=== PATIENT | female | born 1975 | race Caucasian/White ===

== ENCOUNTER 2020-08-14 12:49 | Emergency (ER) | payer SELFPAY ==
[~2020-08-14] VITALS: Ht 170.2 cm; Wt 97.7 kg
--- NOTE | 2020-08-14 13:13 | ED GI ---
General Chief Complaint: Abdominal/GI Problems Stated Complaint: VOMITING/NAUSEA Source of Information: Patient Exam Limitations: No Limitations History of Present Illness Date Seen by Provider: Aug 14, 2020 Time Seen by Provider: 13:00 Initial Comments 45-year-old female presents with 3 days of nausea and vomiting without significant abdominal pain other than some mild epigastric discomfort. History of heartburn and similar discomfort in the past, however not frequently. Denies fever or chills or recent illness. Denies constipation or diarrhea. Denies hematuria or dysuria. Last menstrual period in June, so concerned she may be Allergies and Home Medications Allergies Coded Allergies: No Known Allergies (Unverified Allergy, Unknown, 08/14/20) Home Medications Famotidine 20 Mg Tablet, 20 MG PO BID Prescribed by: AALIYAH KAPLAN on 08/14/20 141 Ondansetron 4 Mg Tab.rapdis, 4 MG PO Q6H PRN for NAUSEA/VOMITING Prescribed by: AALIYAH KAPLAN on 08/14/20 1416 Patient Home Medication List Home Medication List Reviewed: Yes Review of Systems Review of Systems Constitutional: no symptoms reported; No chills, No fever; malaise EENTM: No Symptoms Reported Respiratory: No Symptoms Reported; Denies Cough, Denies Shortness of Air Cardiovascular: Denies Chest Pain, Denies Edema Gastrointestinal: Abdominal Pain (mild epigastric discomfort); Denies Constipated, Denies Diarrhea; Nausea, Poor Appetite, Poor Fluid Intake (2 to nausea), Vomiting Genitourinary: No Symptoms Reported Skin: No change in color, No lesions, No rash Past Ajztyfg-Jsjfso-Diymyy Hx Past Med/Social Hx: Reviewed Nursing Past Med/Soc Hx Patient Social History Recent Foreign Travel: No Contact w/Someone Who Travel: No Physical Exam Vital Signs Vital Signs - First Documented 08/14/20 12:50 Temp 36.8 Pulse 101 Resp 18 B/P (MAP) 121/70 (87) Pulse Ox 100 O2 Delivery Room Air Capillary Refill : Height/Weight/BMI Height: '" Weight: lbs. oz. kg; BMI Method: General Appearance: WD/WN, no apparent distress Respiratory: chest non-tender, lungs clear, normal breath sounds Cardiovascular: regular rate, rhythm, no edema, no JVD Gastrointestinal: normal bowel sounds, non tender, soft Back: normal inspection, no CVA tenderness Neurologic/Psychiatric: no motor/sensory deficits, alert, normal mood/affect Skin: normal color, warm/dry Progress/Results/Core Measures Results/Orders Lab Results Laboratory Tests Test 08/14/20 13:28 Range/Units White Blood Count 8.0 4.3-11.0 10^3/uL Red Blood Count 5.25 4.35-5.85 10^6/uL Hemoglobin 15.9 11.5-16.0 G/DL Hematocrit 47 35-52 % Mean Corpuscular Volume 89 80-99 FL Mean Corpuscular Hemoglobin 30 25-34 PG Mean Corpuscular Hemoglobin Concent 34 32-36 G/DL Red Cell Distribution Width 14.0 10.0-14.5 % Platelet Count 425 H 130-400 10^3/uL Mean Platelet Volume 9.0 7.4-10.4 FL Immature Granulocyte % (Auto) 0 % Neutrophils (%) (Auto) 75 42-75 % Lymphocytes (%) (Auto) 18 12-44 % Monocytes (%) (Auto) 6 0-12 % Eosinophils (%) (Auto) 1 0-10 % Basophils (%) (Auto) 0 0-10 % Neutrophils # (Auto) 6.0 1.8-7.8 X 10^3 Lymphocytes # (Auto) 1.5 1.0-4.0 X 10^3 Monocytes # (Auto) 0.4 0.0-1.0 X 10^3 Eosinophils # (Auto) 0.0 0.0-0.3 10^3/uL Basophils # (Auto) 0.0 0.0-0.1 10^3/uL Immature Granulocyte # (Auto) 0.0 0.0-0.1 10^3/uL Sodium Level 138 135-145 MMOL/L Potassium Level 4.3 3.6-5.0 MMOL/L Chloride Level 101 98-107 MMOL/L Carbon Dioxide Level 25 21-32 MMOL/L Anion Gap 12 5-14 MMOL/L Blood Urea Nitrogen 9 7-18 MG/DL Creatinine 0.62 0.60-1.30 MG/DL Estimat Glomerular Filtration Rate > 60 BUN/Creatinine Ratio 15 Glucose Level 116 H 70-105 MG/DL Calcium Level 9.8 8.5-10.1 MG/DL Corrected Calcium 9.4 8.5-10.1 MG/DL Total Bilirubin 0.4 0.1-1.0 MG/DL Aspartate Amino Transf (AST/SGOT) 9 5-34 U/L Alanine Aminotransferase (ALT/SGPT) 9 0-55 U/L Alkaline Phosphatase 96 40-136 U/L Total Protein 7.9 6.4-8.2 GM/DL Albumin 4.5 3.2-4.5 GM/DL Lipase 72 8-78 U/L My Orders Orders - AALIYAH KAPLAN DO Ed Iv/Invasive Line Start (08/14/20 13:07) Cbc With Automated Diff (08/14/20 13:07) Comprehensive Metabolic Panel (08/14/20 13:07) Lipase (08/14/20 13:07) Abdomen (Kub) 1 View (08/14/20 13:07) Ns Iv 1000 Ml (Sodium Chloride 0.9%) (08/14/20 13:15) Ondansetron Injection (Zofran Injectio (08/14/20 13:15) Medications Given in ED Current Medications Medications Dose Ordered Sig/Gurpreet Route Start Time Stop Time Status Last Admin Dose Admin Ondansetron HCl 4 mg ONCE ONCE IVP 08/14/20 13:15 08/14/20 13:16 DC 08/14/20 13:30 4 MG Vital Signs/I&O 08/14/20 12:50 Temp 36.8 Pulse 101 Resp 18 B/P (MAP) 121/70 (87) Pulse Ox 100 O2 Delivery Room Air Diagnostic Imaging Diagonstic Imaging: Xray Plain Films/CT/US/NM/MRI: abdomen Comments Date of Exam:08/14/20 ABDOMEN (KUB) 1 VIEW INDICATION: Epigastric pain. COMPARISON: None available. TECHNIQUE: Two radiographs of the abdomen dated 08/14/2020. FINDINGS: Minimally visualized lung bases are clear. Umbilical ornamentation is incidentally noted. Small amount of gas and stool is noted throughout the colon. No dilated loops of small bowel. No differential air-fluid levels. No free air. No suspicious calcification overlying the renal shadows. Several round calcifications are noted within the pelvis bilaterally, favored related to phleboliths. Mild osseous degenerative changes without acute osseous abnormality. IMPRESSION: No acute abnormality. Dictated on workstation # [id number] Dict: 08/14/20 1344 Trans: 08/14/20 1349 [facility] [id number] Interpreted by: SHELIA COFFEY MD Electronically signed by: Departure Impression Primary Impression: Nausea and vomiting Qualified Codes: R11.2 - Nausea with vomiting, unspecified Disposition: 01 HOME, SELF-CARE Condition: Improved Departure-Patient Inst. Decision time for Depature: 14:12 Referrals: [facility] NO,LOCAL PHYSICIAN (PCP) Primary Care Physician Patient Instructions: Nausea and Vomiting, Adult Add. Discharge Instructions: See your PCP or the [facility] in 2 to 3 days if not improving, sooner if worse. All discharge instructions reviewed with patient and/or family. Voiced understanding. Scripts Ondansetron (Ondansetron Odt) 4 Mg Tab.rapdis 4 MG PO Q6H PRN for NAUSEA/VOMITING, #12 TAB 0 Refills Prov: AALIYAH KAPLAN DO 08/14/20 Famotidine (Pepcid) 20 Mg Tablet 20 MG PO BID, #20 TAB Prov: AALIYAH KAPLAN DO 08/14/20 AALIYAH KAPLAN DO Aug 14, 2020 13:13
[2020-08-14] MEDS ORDERED: ONDANSETRON 4 MG/2 ML (SDV) Z0FRAN IVP ONE (13:15)
[2020-08-14] MEDS ORDERED: NS IV 1000 ML 1,000 ML IV SCH (13:15)
[2020-08-14 13:41] LABS: HEMATOCRIT 47 % (35-52); HEMOGLOBIN 15.9 G/DL (11.5-16.0); MEAN CORPUSCULAR HEMOGLOBIN 30 PG (25-34); MEAN CORPUSCULAR HGB CONC 34 G/DL (32-36); MEAN CORPUSCULAR VOLUME 89 FL (80-99); NEUTROPHILS % (AUTO) 75 % (42-75); PLATELET COUNT 425 10^3/uL (130-400)
[2020-08-14 13:42] LABS: BASOPHILS % (AUTO) 0 % (0-10); EOSINOPHILS % (AUTO) 1 % (0-10); LYMPHOCYTES # (AUTO) 1.5 X 10^3 (1.0-4.0); LYMPHOCYTES % (AUTO) 18 % (12-44); MONOCYTES # (AUTO) 0.4 X 10^3 (0.0-1.0); MONOCYTES % (AUTO) 6 % (0-12)
--- NOTE | 2020-08-14 13:50 | Diagnostic Imaging Report ---
INDICATION: Epigastric pain. COMPARISON: None available. TECHNIQUE: Two radiographs of the abdomen dated 08/14/2020. FINDINGS: Minimally visualized lung bases are clear. Umbilical ornamentation is incidentally noted. Small amount of gas and stool is noted throughout the colon. No dilated loops of small bowel. No differential air-fluid levels. No free air. No suspicious calcification overlying the renal shadows. Several round calcifications are noted within the pelvis bilaterally, favored related to phleboliths. Mild osseous degenerative changes without acute osseous abnormality. IMPRESSION: No acute abnormality. Dictated by: Dictated on workstation # [id number]
[2020-08-14 14:00] LABS: BUN/CREATININE RATIO 15; CARBON DIOXIDE 25 MMOL/L (21-32); CHLORIDE 101 MMOL/L (98-107); CREATININE SERUM 0.62 MG/DL (0.60-1.30); GFR ESTIMATED > 60; POTASSIUM 4.3 MMOL/L (3.6-5.0); SODIUM 138 MMOL/L (135-145)
[2020-08-14 14:01] LABS: ALANINE AMINOTRANSFERASE 9 U/L (0-55); ALBUMIN 4.5 GM/DL (3.2-4.5); ALKALINE PHOSPHATASE 96 U/L (40-136); BILIRUBIN,TOTAL 0.4 MG/DL (0.1-1.0); CALCIUM 9.8 MG/DL (8.5-10.1); GLUCOSE 116 MG/DL (70-105); LIPASE 72 U/L (8-78); TOTAL PROTEIN 7.9 GM/DL (6.4-8.2)
[2020-08-14] MEDS ORDERED: FAMO-119 PO (14:16)
[2020-08-14] MEDS ORDERED: ONDA4TAB11 PO (14:16)
[2020-08-14 14:24] VITALS: BP 156/90
== END 2020-08-14 14:24 | disposition home or self-care (01) ==
LOC: ER FS 12:51
DX: R11.2 Nausea with vomiting, unspecified (principal)
CPT/HCPCS: 36415; 74018; 80053; 83690; 84703; 85025

== ENCOUNTER 2021-09-02 04:02 | Inpatient (IN) | payer SELFPAY ==
[~2021-09-02] VITALS: Ht 170 cm; Wt 71.4 kg
[2021-09-02] VITALS (7 sets, daily range): BP systolic 153–175; BP diastolic 88–105
[~2021-09-02 04:02] MED LIST: FAMO-119 PO; ONDA4TAB11 PO
--- NOTE | 2021-09-02 04:07 | ED Abdominal Pain ---
General Stated Complaint: RT SIDE ABD PAIN History of Present Illness Date Seen by Provider: Sep 02, 2021 Time Seen by Provider: 04:07 Initial Comments 46-year-old female presents with right-sided lower abdominal pain. She reports that started around 10 PM last night. Patient reports that it hurts to lay back. She has some nausea and vomiting. Patient reports no other symptoms Allergies and Home Medications Allergies Coded Allergies: No Known Allergies (Unverified Allergy, Unknown, 08/14/20) Patient Home Medication List Home Medication List Reviewed: Yes Famotidine (Pepcid) 20 Mg Tablet, 20 MG PO BID Prescribed by: AALIYAH KAPLAN on 08/14/20 141 Ondansetron (Ondansetron Odt) 4 Mg Tab.rapdis, 4 MG PO Q6H PRN for NAUSEA/VOMITING Prescribed by: AALIYAH KAPLAN on 08/14/20 141 Review of Systems Review of Systems Constitutional: No fever Cardiovascular: No Symptoms Reported Gastrointestinal: Abdominal Pain, Nausea, Vomiting Genitourinary: No Symptoms Reported Musculoskeletal: no symptoms reported Skin: no symptoms reported Psychiatric/Neurological: No Symptoms Reported Endocrine: No Symptoms Reported Hematologic/Lymphatic: No Symptoms Reported Past Ptqnsrf-Wjlthn-Cvmqex Hx Seasonal Allergies Seasonal Allergies: No Past Medical History Surgeries: No Respiratory: No Cardiac: No Neurological: No Genitourinary: No Gastrointestinal: No Musculoskeletal: No Endocrine: No HEENT: No Cancer: No Psychosocial: No Integumentary: No Blood Disorders: No Physical Exam Vital Signs Vital Signs - First Documented 09/02/21 04:02 Pulse 90 Resp 20 B/P (MAP) 143/91 (108) Pulse Ox 98 O2 Delivery Room Air Capillary Refill : Height/Weight/BMI Height: '" Weight: lbs. oz. kg; 33.00 BMI Method: General Appearance: moderate distress Neck: full range of motion Respiratory: no respiratory distress, no accessory muscle use Cardiovascular: regular rate, rhythm, no edema Gastrointestinal: No distended; guarding Extremities: normal range of motion Neurologic/Psychiatric: alert Skin: normal color, tattoos/piercings Progress/Results/Core Measures Results/Orders Lab Results Laboratory Tests Test 09/02/21 04:13 09/02/21 04:50 Range/Units White Blood Count 18.6 H 4.3-11.0 10^3/uL Red Blood Count 4.21 3.80-5.11 10^6/uL Hemoglobin 12.7 11.5-16.0 g/dL Hematocrit 38 35-52 % Mean Corpuscular Volume 90 80-99 fL Mean Corpuscular Hemoglobin 30 25-34 pg Mean Corpuscular Hemoglobin Concent 34 32-36 g/dL Red Cell Distribution Width 13.1 10.0-14.5 % Platelet Count 437 H 130-400 10^3/uL Mean Platelet Volume 8.9 L 9.0-12.2 fL Immature Granulocyte % (Auto) 0 % Neutrophils (%) (Auto) 91 H 42-75 % Lymphocytes (%) (Auto) 4 L 12-44 % Monocytes (%) (Auto) 4 0-12 % Eosinophils (%) (Auto) 0 0-10 % Basophils (%) (Auto) 0 0-10 % Neutrophils # (Auto) 17.0 H 1.8-7.8 X 10^3 Lymphocytes # (Auto) 0.8 L 1.0-4.0 X 10^3 Monocytes # (Auto) 0.7 0.0-1.0 X 10^3 Eosinophils # (Auto) 0.0 0.0-0.3 10^3/uL Basophils # (Auto) 0.0 0.0-0.1 10^3/uL Immature Granulocyte # (Auto) 0.1 0.0-0.1 10^3/uL Neutrophils % (Manual) 90 % Lymphocytes % (Manual) 5 % Monocytes % (Manual) 2 % Band Neutrophils 2 % Atypical Lymphocytes 1 % Toxic Granulation 2+ Platelet Estimate INCREASED Blood Morphology Comment NORMAL Sodium Level 135 135-145 MMOL/L Potassium Level 3.4 L 3.6-5.0 MMOL/L Chloride Level 98 98-107 MMOL/L Carbon Dioxide Level 25 21-32 MMOL/L Anion Gap 12 5-14 MMOL/L Blood Urea Nitrogen 11 7-18 MG/DL Creatinine 0.70 0.60-1.30 MG/DL Estimat Glomerular Filtration Rate 91 BUN/Creatinine Ratio 16 Glucose Level 138 H 70-105 MG/DL Calcium Level 8.8 8.5-10.1 MG/DL Corrected Calcium 9.2 8.5-10.1 MG/DL Total Bilirubin 0.7 0.1-1.0 MG/DL Aspartate Amino Transf (AST/SGOT) 13 5-34 U/L Alanine Aminotransferase (ALT/SGPT) 11 0-55 U/L Alkaline Phosphatase 74 40-136 U/L C-Reactive Protein 3.18 H <0.50 MG/DL Total Protein 6.8 6.4-8.2 GM/DL Albumin 3.5 3.2-4.5 GM/DL Urine Color YELLOW Urine Clarity CLEAR Urine pH 7.0 5-9 Urine Specific [place] 1.020 1.016-1.022 Urine Protein 1+ H NEGATIVE Urine Glucose (UA) NEGATIVE NEGATIVE Urine Ketones 2+ H NEGATIVE Urine Nitrite NEGATIVE NEGATIVE Urine Bilirubin 1+ H NEGATIVE Urine Urobilinogen 0.2 < = 1.0 MG/DL Urine Leukocyte Esterase NEGATIVE NEGATIVE Urine RBC (Auto) NEGATIVE NEGATIVE Urine RBC NONE /HPF Urine WBC 2-5 /HPF Urine Squamous Epithelial Cells 5-10 /HPF Urine Crystals NONE /LPF Urine Bacteria FEW H /HPF Urine Casts PRESENT /LPF Urine Hyaline Casts 0-2 H /LPF Urine Mucus LARGE H /LPF Urine Culture Indicated NO My Orders Orders - SANCHEZ,LIZZETH L DO Cbc With Automated Diff (09/02/21 04:07) Comprehensive Metabolic Panel (09/02/21 04:07) Ua Culture If Indicated (09/02/21 04:07) Crp Fs (09/02/21 04:07) Morphine Injection (Morphine Injection (09/02/21 04:15) Ed Iv/Invasive Line Start (09/02/21 04:12) Manual Differential (09/02/21 04:13) Ct Abd/Pelv W (Appendicitis) (09/02/21 04:53) Iohexol Injection (Omnipaque 350 Mg/Ml 1 (09/02/21 05:00) Received Contrast (Hold Metformin- Contr (09/02/21 05:00) Ns (Ivpb) (Sodium Chloride 0.9% Ivpb Bag (09/02/21 05:00) Piperacillin Sodium/Tazobactam (Zosyn Vi (09/02/21 05:45) Morphine Injection (Morphine Injection (09/02/21 05:45) Lactic Acid Analyzer (09/02/21 05:45) Blood Culture (09/02/21 05:45) Medications Given in ED Current Medications Medications Dose Ordered Sig/Gurpreet Route Start Time Stop Time Status Last Admin Dose Admin Iohexol 100 ml ONCE ONCE IV 09/02/21 05:00 09/02/21 05:01 DC 09/02/21 05:21 100 ML Morphine Sulfate 2 mg ONCE ONCE IVP 09/02/21 04:15 09/02/21 04:16 DC 09/02/21 04:14 2 MG Sodium Chloride 100 ml ONCE ONCE IV 09/02/21 05:00 09/02/21 05:01 DC 09/02/21 05:21 80 ML Vital Signs/I&O 09/02/21 04:02 Pulse 90 Resp 20 B/P (MAP) 143/91 (108) Pulse Ox 98 O2 Delivery Room Air Departure Impression Primary Impression: Pneumoperitoneum Additional Impressions: Free fluid in pelvis Elevated WBC count Qualified Codes: D72.829 - Elevated white blood cell count, unspecified Disposition: 30 STILL A PATIENT Condition: Stable Admissions Decision to Admit Reason: Admit from ER (General) Decision to Admit/Date: Sep 02, 2021 Time/Decision to Admit Time: 05:45 Departure-Patient Inst. Referrals: NO,LOCAL PHYSICIAN (PCP/Family) Primary Care Physician LIZZETH SANCHEZ DO Sep 02, 2021 04:07
--- OUTSIDE RECORDS SUMMARY | 2021-09-02 04:08 | XMS REPORT | Clinical Summary ---
Author Author [facility] Organization [facility] Address Unknown Phone Unavailable Care Team Providers Care Despatch Clerk Name Role Phone PCP Unavailable Allergies Not on File Medications Not on file Active Problems Not on file Social History Date Tobacco Use Types Packs/Day Years Used Never Assessed Sex Assigned at Date Recorded Not on file Last Filed Vital Signs Not on file Plan of Treatment Not on file Results Not on filefrom Last 3 Months
[2021-09-02] MEDS ORDERED: morphine INJ 10 MG/ML 1ML (SYR OR VIAL) IVP ONE ×2 (04:15→05:45)
[2021-09-02 04:33] LABS: BASOPHILS % (AUTO) 0 % (0-10); EOSINOPHILS % (AUTO) 0 % (0-10); HEMATOCRIT 38 % (35-52); HEMOGLOBIN 12.7 g/dL (11.5-16.0); LYMPHOCYTES % (AUTO) 4 % (12-44); MEAN CORPUSCULAR HEMOGLOBIN 30 pg (25-34); MEAN CORPUSCULAR HGB CONC 34 g/dL (32-36); MEAN CORPUSCULAR VOLUME 90 fL (80-99); MEAN PLATELET VOLUME 8.9 fL (9.0-12.2); MONOCYTES % (AUTO) 4 % (0-12); NEUTROPHILS % (AUTO) 91 % (42-75); PLATELET COUNT 437 10^3/uL (130-400); WHITE BLOOD COUNT 18.6 10^3/uL (4.3-11.0)
[2021-09-02 04:34] LABS: LYMPHOCYTES # (AUTO) 0.8 X 10^3 (1.0-4.0); MONOCYTES # (AUTO) 0.7 X 10^3 (0.0-1.0)
[2021-09-02 04:43] LABS: ATYPICAL LYMPHOCYTES 1 %; BAND NEUTROPHILS 2 %; LYMPHOCYTES % (MANUAL) 5 %; MONOCYTES % (MANUAL) 2 %; NEUTROPHILS % (MANUAL) 90 %; PLATELET ESTIMATE INCREASED
[2021-09-02 04:44] LABS: RBC MORPH NORMAL; TOXIC GRANULATION/VACUOLAZATIO 2+
[2021-09-02 04:47] LABS: ALBUMIN 3.5 GM/DL (3.2-4.5); BILIRUBIN,TOTAL 0.7 MG/DL (0.1-1.0); CALCIUM 8.8 MG/DL (8.5-10.1); CREATININE SERUM 0.7 MG/DL (0.60-1.30); POTASSIUM 3.4 MMOL/L (3.6-5.0); TOTAL PROTEIN 6.8 GM/DL (6.4-8.2)
[2021-09-02] MEDS ORDERED: NS 100 ML (IVPB) BAG IV ONE (05:00)
[2021-09-02] MEDS ORDERED: HOLD METFORMIN - RECEIVED CONTRAST 20 ML VIAL IV SCH (05:00)
[2021-09-02] MEDS ORDERED: IOHEXOL 350 MG/ML 100 ML (OMNIPAQUE 350) VIAL IV ONE (05:00)
[2021-09-02 05:09] LABS: CLARITY,URINE CLEAR; COLOR,URINE YELLOW; GLUCOSE, URINE (UA) NEGATIVE (NEGATIVE); KETONES,URINE 2+ (NEGATIVE); LEUKOCYTE ESTERASE ,URINE NEGATIVE (NEGATIVE); NITRITE,URINE NEGATIVE (NEGATIVE); PROTEIN,URINE 1+ (NEGATIVE)
[2021-09-02 05:19] LABS: BACTERIA,URINE FEW /HPF; BILIRUBIN,URINE 1+ (NEGATIVE); HYALINE CASTS, URINE 0-2 /LPF
--- NOTE | 2021-09-02 05:33 | Diagnostic Imaging Report ---
PROCEDURE: CT abdomen and pelvis with contrast, rule out appendicitis. TECHNIQUE: Multiple contiguous axial images were obtained through the abdomen and pelvis after the administration of intravenous contrast. All CT scans use one or more of the following dose optimizing techniques: automated exposure control, MA and/or KvP adjustment based on patient size and exam type or iterative reconstruction. INDICATION: Right lower quadrant pain Lung bases are clear. There is a tiny pneumoperitoneum. There is a moderate amount of free fluid in the peritoneal cavity. The liver appears grossly normal. The gallbladder is present. Pancreas appears normal. The spleen is not enlarged. Kidneys and adrenals appear normal. There is calcific atherosclerosis of aorta but no aneurysm. There is a Momin catheter in urinary bladder. Uterus is present and unremarkable. Adnexa are unremarkable. There is no evidence for appendicitis. Small bowel is not dilated. Colon is unremarkable. IMPRESSION: There is a small pneumoperitoneum with a moderate amount of intraperitoneal free fluid. The source of the free air and free fluid is indeterminate. Dictated by: Dictated on workstation # [id number]
[2021-09-02] MEDS ORDERED: PIPERACILLIN SODIUM/TAZOBACTAM 4.5 GM in NS (IVPB) 100 ML IV ONE (05:45)
[2021-09-02] MEDS ORDERED: NS IV 1000 ML 1,000 ML IV STA (06:00)
[2021-09-02] MEDS ORDERED: NS IV 1000 ML 1,000 ML IV SCH (09:30)
--- NOTE | 2021-09-02 09:45 | Consultation - Surgery ---
JACKELINE MOURA 09/02/21 0945: History of Present Illness History of Present Illness Patient Consulted On(oz/time) 09/02/21 09:39 Time Seen by Provider: 09:30 History of Present Illness Ms. Woo is a 46yo female with past medical history of GERD presented to the ED last night with pain of the last three days that became more severe yesterday. It began in the epigastric area and has become diffuse and is most severe in the RLQ. The pain is sharp with no improvement. It is worse with breathing and palpation. She also complains of fever, nausea, and vomiting. She is not able to consume solid food or liquids. Allergies and Home Medications Allergies Coded Allergies: aspirin (Verified Allergy, Mild, Urticaria , 09/02/21) No Known Allergies (Unverified Allergy, Unknown, 08/14/20) Patient Home Medication List Famotidine (Pepcid) 20 Mg Tablet, 20 MG PO BID Prescribed by: AALIYAH KAPLAN on 08/14/20 1416 Ondansetron (Ondansetron Odt) 4 Mg Tab.rapdis, 4 MG PO Q6H PRN for NAUSEA/VOMITING Prescribed by: AALIYAH KAPLAN on 08/14/20 1416 Past Ewvujlq-Escayf-Bersny Hx Patient Social History Smoking Status: Current Everyday Smoker Type Used: Cigarettes 2nd Hand Smoke Exposure: Yes Recent Hopitalizations: No Alcohol Use?: No (Previous history of abuse, quit 10 years ago) Substance type: Marijuana (Potentially laced with methamphetamine ) Have you traveled recently?: No Seasonal Allergies Seasonal Allergies: Yes Surgeries History of Surgeries: Yes Surgeries: Orthopedic (Patella at 15yo, lumbar ) Respiratory History of Respiratory Disorde: No Cardiovascular History of Cardiac Disorders: No Neurological History of Neurological Disord: No Genitourinary History of Genitourinary Disor: No Gastrointestinal History of Gastrointestinal Di: Yes Gastrointestinal Disorders: Gastroesophageal Reflux Musculoskeletal History of Musculoskeletal Dis: Yes Musculoskeletal Disorders: Degenerate Disk Disease Endocrine History of Endocrine Disorders: No HEENT History of HEENT Disorders: No Cancer History of Cancer: No Psychosocial History of Psychiatric Problem: No Integumentary History of Skin or Integumenta: No Blood Transfusions History of Blood Disorders: No Family Medical History Significant Family History: Heart Disease, Cancer Review of Systems-General Constitutional: chills, fever, weight loss (From stress with family dispute ) EENTM: ear pain (tinnitus ); No blurred vision, No vision loss Respiratory: No dyspnea on exertion, No short of breath Cardiovascular: No chest pain, No edema Gastrointestinal: abdominal pain (RLQ); No constipation, No diarrhea; loss of appetite; No melena; nausea, vomiting Genitourinary: No decreased output, No frequency Musculoskeletal: back pain, joint pain Skin: No change in color, No change in hair/nails Psychiatric/Neurological: Emotional Problems, Headache Physical Exam-General Problems Physical Exam Vital Signs Vital Signs - First Documented 09/02/21 04:02 Pulse 90 Resp 20 B/P (MAP) 143/91 (108) Pulse Ox 98 O2 Delivery Room Air Capillary Refill : Less Than 3 Seconds General Appearance: mild distress, other (uncomfortable ) HEENT: PERRL/EOMI, normal ENT inspection Neck: non-tender, full range of motion Respiratory: chest non-tender, lungs clear, normal breath sounds, no respiratory distress, no accessory muscle use Cardiovascular: normal peripheral pulses, regular rate, rhythm, no edema Peripheral Pulses: 2+ Dorsalis Pedis (R), 2+ Left Dors-Pedis (L), 2+ Radial Pulses (R), 2+ Radial Pulses (L) Gastrointestinal: guarding, rebound, tenderness, other (rigid) Back: normal inspection, no CVA tenderness Extremities: normal range of motion, non-tender, normal inspection, no pedal edema Neurologic/Psychiatric: no motor/sensory deficits, alert, oriented x 3 Skin: normal color, warm/dry Lymphatic: no adenopathy Data Review Labs Laboratory Tests 09/02/21 04:13: White Blood Count 18.6H, Red Blood Count 4.21, Hemoglobin 12.7, Hematocrit 38, Mean Corpuscular Volume 90, Mean Corpuscular Hemoglobin 30, Mean Corpuscular Hemoglobin Concent 34, Red Cell Distribution Width 13.1, Platelet Count 437H, Mean Platelet Volume 8.9L, Immature Granulocyte % (Auto) 0, Neutrophils (%) (Auto) 91H, Lymphocytes (%) (Auto) 4L, Monocytes (%) (Auto) 4, Eosinophils (%) (Auto) 0, Basophils (%) (Auto) 0, Neutrophils # (Auto) 17.0H, Lymphocytes # (Auto) 0.8L, Monocytes # (Auto) 0.7, Eosinophils # (Auto) 0.0, Basophils # (Auto) 0.0, Immature Granulocyte # (Auto) 0.1, Neutrophils % (Manual) 90, Lymphocytes % (Manual) 5, Monocytes % (Manual) 2, Band Neutrophils 2, Atypical Lymphocytes 1, Toxic Granulation 2+, Platelet Estimate INCREASED, Blood Morphology Comment NORMAL, Sodium Level 135, Potassium Level 3.4L, Chloride Level 98, Carbon Dioxide Level 25, Anion Gap 12, Blood Urea Nitrogen 11, Creatinine 0.70, Estimat Glomerular Filtration Rate 91, BUN/Creatinine Ratio 16, Glucose Level 138H, Lactic Acid Level 0.87, Calcium Level 8.8, Corrected Calcium 9.2, Total Bilirubin 0.7, Aspartate Amino Transf (AST/SGOT) 13, Alanine Aminotransferase (ALT/SGPT) 11, Alkaline Phosphatase 74, C-Reactive Protein 3.18H, Total Protein 6.8, Albumin 3.5 09/02/21 04:50: Urine Color YELLOW, Urine Clarity CLEAR, Urine pH 7.0, Urine Specific [place] 1.020, Urine Protein 1+H, Urine Glucose (UA) NEGATIVE, Urine Ketones 2+H, Urine Nitrite NEGATIVE, Urine Bilirubin 1+H, Urine Urobilinogen 0.2, Urine Leukocyte Esterase NEGATIVE, Urine RBC (Auto) NEGATIVE, Urine RBC NONE, Urine WBC 2-5, Urine Squamous Epithelial Cells 5-10, Urine Crystals NONE, Urine Bacteria FEWH, Urine Casts PRESENT, Urine Hyaline Casts 0-2H, Urine Mucus LARGEH, Urine Culture Indicated NO Radiology NAME: DAVION WOO [facility] REC#: [id number] PT STATUS: REG ER : 1975 PHYSICIAN: LIZZETH SANCHEZ DO ADMIT DATE: 09/02/21/ER FS Signed Date of Exam:09/02/21 CT ABD/PELV W (APPENDICITIS) PROCEDURE: CT abdomen and pelvis with contrast, rule out appendicitis. TECHNIQUE: Multiple contiguous axial images were obtained through the abdomen and pelvis after the administration of intravenous contrast. All CT scans use one or more of the following dose optimizing techniques: automated exposure control, MA and/or KvP adjustment based on patient size and exam type or iterative reconstruction. INDICATION: Right lower quadrant pain Lung bases are clear. There is a tiny pneumoperitoneum. There is a moderate amount of free fluid in the peritoneal cavity. The liver appears grossly normal. The gallbladder is present. Pancreas appears normal. The spleen is not enlarged. Kidneys and adrenals appear normal. There is calcific atherosclerosis of aorta but no aneurysm. There is a Momin catheter in urinary bladder. Uterus is present and unremarkable. Adnexa are unremarkable. There is no evidence for appendicitis. Small bowel is not dilated. Colon is unremarkable. IMPRESSION: There is a small pneumoperitoneum with a moderate amount of intraperitoneal free fluid. The source of the free air and free fluid is indeterminate. Dictated by: Dictated on workstation # [id number] Dict: 09/02/21521 Trans: 09/02/21530 TCB [id number] Interpreted by: PORFIRIO KING MD Assessment/Plan Assessment/Plan Assessment/Plan Bowel rupture with pneumoperitoneum and free fluid in pelvis Diagnostic laparoscopy and all other indicated procedures Pain management with fentanyl IV fluids Leukocytosis with neutrophilia Piperacillin/tazobactam Possible Fluconazole pending results of laparoscopy CUAUHTEMOC RICHARDSON DO 09/02/21 1127: History of Present Illness History of Present Illness History of Present Illness CC: diffuse abdominal pain. Patient is a 46 year old female with diffuse abdominal pain that began last night about 10 pm. Prior to that , she had vague abdominal pain which continued to worsen. Began in epigastric area first. Pain is sharp in nature. Having nausea and emesis. States has had subjective fever. Movement makes worse, nothing making better. WBC 18.6. Had ct scan showing fluid in the abdomen and pneumoperitoneum. Allergies and Home Medications Allergies Coded Allergies: aspirin (Verified Allergy, Mild, Urticaria , 09/02/21) No Known Allergies (Unverified Allergy, Unknown, 08/14/20) Patient Home Medication List Home Medication List Reviewed: Yes Famotidine (Pepcid) 20 Mg Tablet, 20 MG PO BID Prescribed by: AALIYAH KAPLAN on 08/14/20 1416 Ondansetron (Ondansetron Odt) 4 Mg Tab.rapdis, 4 MG PO Q6H PRN for NAUSEA/VOMITING Prescribed by: AALIYAH SAMAYOASTSARTHAK on 08/14/20 1416 Past Jhzyvuq-Jihzsv-Iimdzq Hx Patient Social History Smoking Status: Current Everyday Smoker Substance type: Marijuana (Potentially laced with methamphetamine ) Seasonal Allergies Seasonal Allergies: Yes Surgeries History of Surgeries: Yes Surgeries: Orthopedic (Patella at 15yo, lumbar ) Reviewed Nursing Assessment Reviewed/Agree w Nursing PMH: Yes Family Medical History Significant Family History: No Pertinent Family Hx Review of Systems-General Constitutional: chills, fever, weight loss (From stress with family dispute ) EENTM: ear pain (tinnitus ); No blurred vision, No vision loss Respiratory: No dyspnea on exertion, No short of breath Cardiovascular: No chest pain, No edema Gastrointestinal: abdominal pain (diffuse); No constipation, No diarrhea; loss of appetite; No melena; nausea, vomiting Genitourinary: No decreased output, No frequency Musculoskeletal: back pain, joint pain Skin: No change in color, No change in hair/nails Psychiatric/Neurological: Emotional Problems, Headache All Other Systems Reviewed Negative Unless Noted: Yes (Negative excepted noted.) Physical Exam-General Problems Physical Exam General Appearance: mild distress, other (uncomfortable ) HEENT: PERRL/EOMI, normal ENT inspection Neck: non-tender, full range of motion Respiratory: chest non-tender, no respiratory distress, no accessory muscle use Cardiovascular: regular rate, rhythm, no JVD Gastrointestinal: guarding, rebound, tenderness (diffuse), other (rigid/ata tonitis) Back: normal inspection, no CVA tenderness Extremities: normal range of motion, normal inspection, no pedal edema Neurologic/Psychiatric: no motor/sensory deficits, alert, oriented x 3 Skin: normal color, warm/dry Lymphatic: no adenopathy Assessment/Plan Assessment/Plan Assessment/Plan Diffuse abdominal pain Pneumoperitoneum Marijuanna use Patient on Zosyn Discussed risks and benefits of diagnostic laparoscopy possible open all other indicated procedures SHe understands and wishes to proceed. To OR. Supervisory-Addendum Brief Verification & Attestation Participated in pt care: history, MDM, physical Personally performed: exam, history, MDM, supervision of care Care discussed with: Medical Student Procedures: n/a Results interpretation: Verified all documentation Verification and Attestation of Medical Student E/M Service A medical student performed and documented this service in my presence. I reviewed and verified all information documented by the medical student and made modifications to such information, when appropriate. I personally performed the physical exam and medical decision making. Cuauhtemoc Richardson, Sep 02, 2021,11:27 JACKELINE MOURA Sep 02, 2021 09:45 CUAUHTEMOC RICHADRSON DO Sep 02, 2021 11:27
[2021-09-02] MEDS ORDERED: ONDANSETRON 4 MG/2 ML (SDV) Z0FRAN IVP PRN (10:00)
[2021-09-02] MEDS ORDERED: EPINEPHrine 1 MG INJECTION 4 MG in NS (IVPB) 248 ML IV SCH (10:00)
[2021-09-02] MEDS: NOREPINEPHRINE 8 MG/250 ML 250 ML IV SCH (10:15)
[2021-09-02] MEDS: VASOPRESSIN INJECTION 20 UNIT in NS (IVPB) 100 ML IV SCH ×2 (10:16→23:55)
[2021-09-02 10:43] LABS: HCG,QUALITATIVE URINE NEGATIVE (NEGATIVE)
[2021-09-02] MEDS: morphine INJ 4 MG/ML 1 ML (VIAL/SYRINGE) IVP PRN ×4 (10:47→22:22)
[2021-09-02] MEDS ORDERED: LIDOCAINE/EPI 1%-1:100,000 (XYLOCAINE) 20ML ONE (10:48)
[2021-09-02 10:53] LABS: AMPHETAMINE SCREEN, URINE POSITIVE (NEGATIVE); BARBITURATE SCREEN URINE NEGATIVE (NEGATIVE); BENZODIAZEPINES SCREEN URINE NEGATIVE (NEGATIVE); CANNABINOID SCREEN, URINE POSITIVE (NEGATIVE); COCAINE SCREEN URINE NEGATIVE (NEGATIVE); METHADONE STAT NEGATIVE (NEGATIVE); METHAMPHETAMINE SCREEN URINE S POSITIVE (NEGATIVE); OPIATE SCREEN URINE POSITIVE (NEGATIVE); OXYCODONE STAT NEGATIVE (NEGATIVE); PROPOXYPHENE STAT NEGATIVE (NEGATIVE); TRICYCLIC ANTIDEPRESSANTS SCRE NEGATIVE (NEGATIVE)
[2021-09-02] MEDS ORDERED: LACTATED RINGERS 1,000 ML IV PRN (11:00)
[2021-09-02] MEDS ORDERED: fentaNYL INJ 100 MCG/2 ML AMP ONE (11:08)
[2021-09-02] MEDS ORDERED: MIDAZOLAM 2 MG/2 ML (VERSED) VIAL ONE (11:09)
[2021-09-02] MEDS: LACTATED RINGERS 1,000 ML IV PRN ×2 (11:29→12:04)
[2021-09-02] MEDS: PIPERACILLIN/TAZO 4.5 GM/NS 100 ML IV SCH ×4 (11:55→19:43)
[2021-09-02] MEDS ORDERED: GLYCOPYRROLATE 0.2 MG/ML (ROBINUL) 2 ML VIAL ONE (12:17)
[2021-09-02] MEDS ORDERED: NEOSTIGMINE 3 MG/3 ML VIAL ONE (12:17)
[2021-09-02] MEDS ORDERED: ONDANSETRON 4 MG/2 ML (SDV) Z0FRAN ONE (12:17)
[2021-09-02] MEDS ORDERED: LIDOCAINE JELLY 2% 6 ML SYRINGE ONE (12:17)
[2021-09-02] MEDS ORDERED: SUCCINYLCHOLINE INJ 100 MG/5 ML SYR/VIAL ONE (12:17)
[2021-09-02] MEDS ORDERED: LIDOCAINE PF 2% 5 ML (XYLOCAINE) VIAL ONE (12:17)
[2021-09-02] MEDS ORDERED: proPOfol 200 MG/20 ML (DIPRIVAN) VIAL IV ONE (12:17)
[2021-09-02] MEDS ORDERED: ROCURONIUM 10 MG/ML 5 ML SYRINGE IV ONE (12:17)
[2021-09-02] MEDS ORDERED: BUPIVACAINE 0.5% 30 ML (SENSORCAINE) VIAL ONE (12:42)
[2021-09-02] MEDS ORDERED: HYDROmorphone 2 MG/ML VIAL (DILAUDID) ONE (13:10)
[2021-09-02] MEDS ORDERED: SEVOFLURANE (ULTANE) 15 ML INHAL SOLN ONE (13:11)
[2021-09-02] MEDS ORDERED: FLUCONAZOLE 200 MG/100 ML 100 ML IV NR (13:30)
[2021-09-02] MEDS ORDERED: NS (IVPB) 0 ML ONE (13:33)
[2021-09-02] MEDS: LACTATED RINGERS 1,000 ML IV SCH ×2 (14:32→22:21)
[2021-09-02] MEDS: PANTOPRAZOLE INJECTION 200 MG in NS (IVPB) 100 ML IV SCH (14:36)
--- NOTE | 2021-09-02 16:04 | Tele-ICU Consult ---
History of Present Illness History of Present Illness Date Seen by Provider: Sep 02, 2021 Time Seen by Provider: 16:03 Date of Admission Allergies and Home Medications Allergies Coded Allergies: aspirin (Verified Allergy, Mild, Urticaria , 09/02/21) No Known Allergies (Unverified Allergy, Unknown, 08/14/20) Home Medications Famotidine 20 Mg Tablet, 20 MG PO BID Prescribed by: AALIYAH KAPLAN on 08/14/20 1416 Ondansetron 4 Mg Tab.rapdis, 4 MG PO Q6H PRN for NAUSEA/VOMITING Prescribed by: AALIYAH KAPLAN on 08/14/20 1416 Past Medical/Social/Family Hx Patient Social History Tobacco Use?: Yes Tobacco type used: Cigarettes Smoking Status: Current Everyday Smoker Smokeless Tobacco Frequency: Heavy User Use of E-Cig and/or Vaping dev: No Substance use?: Yes Substance type: Marijuana (Potentially laced with methamphetamine ) OCCASIONAL USE Substance frequency: Couple times a week Alcohol Use?: No (Previous history of abuse, quit 10 years ago) Pt stated abuse/neglect: No Immunizations Up To Date Influenza Vaccine Up-to-Date: No; Not Current Current Status Advance Directives: No Communicates: Verbally Primary Language: Moroccan Preferred Spoken Language: Moroccan Is interpretation needed?: No Implanted or Applied Medical D: None Review of Systems Constitutional: see HPI Sepsis Event Evaluation Height, Weight, BMI Height: '" Weight: lbs. oz. kg; 2456.74 BMI Method: Exam Exam Patient acknowledged, consented, and participated in this virtual visit which was conducted using real time audio/video Vital Signs Date Time Temp Pulse Resp B/P (MAP) Pulse Ox O2 Delivery O2 Flow Rate FiO2 09/02/21 15:00 86 16 151/92 95 Room Air 09/02/21 14:05 87 16 165/102 94 Room Air 09/02/21 14:03 89 09/02/21 14:00 36.8 18 155/92 (113) 96 Room Air 09/02/21 14:00 Room Air 09/02/21 13:50 18 153/88 (109) 97 Room Air 09/02/21 13:45 Room Air 09/02/21 13:42 Room Air 09/02/21 13:40 18 163/99 (120) 100 OxyMask 3 09/02/21 13:40 OxyMask 3 09/02/21 13:32 OxyMask 6 09/02/21 13:30 18 166/99 (121) 100 OxyMask 6 09/02/21 13:27 OxyMask 6 09/02/21 13:20 18 175/105 (128) 100 OxyMask 6 09/02/21 13:15 OxyMask 6 09/02/21 13:10 18 173/102 (125) 100 OxyMask 6 09/02/21 13:03 OxyMask 6 09/02/21 13:03 37.0 20 164/92 (116) 100 OxyMask 6 09/02/21 12:26 Room Air 8.00 09/02/21 11:00 96 14 130/76 97 Room Air 09/02/21 10:16 86 130/79 09/02/21 10:15 86 130/79 09/02/21 10:00 80 19 126/80 99 Room Air 09/02/21 09:33 96 Room Air 09/02/21 09:00 86 09/02/21 09:00 37.0 81 18 130/79 97 Room Air 09/02/21 08:04 88 16 132/74 97 Room Air 09/02/21 04:02 90 20 143/91 (108) 98 Room Air I & O 09/02/21 07:00 Intake Total 400 ml Balance 400 ml Height & Weight Height: '" Weight: lbs. oz. kg; 2456.74 BMI Method: General Appearance: No Apparent Distress Capillary Refill: Less Than 3 Seconds Peripheral Pulses: 2+ Dorsalis Pedis (R), 2+ Left Dors-Pedis (L), 2+ Radial Pulses (R), 2+ Radial Pulses (L) Gastrointestinal: guarding, rebound, tenderness (diffuse), other (rigid/peritonitis) Results Lab Laboratory Tests 09/02/21 04:13 Assessment/Plan Assessment/Plan (Tele-ICU Physician , consultation) Available chart/ vitals / labs / Images reviewed H&P is from ER notes Patient's information available about PMH, Shx, Fhx allergy reviewed in EMR. ROS as per chart and RN report Now in ICU, hemodynamically stable Video assessment done using teleICU camera, on arrival to ICU , and now post op Discussed with RN. Consultants: SX Hospital course: 09/02 - trnsferred to ICU from other facility with small pneumoperitoneum with a moderate amount of intraperitoneal free fluid. 09/02- s/p SX A/P Small pneumoperitoneum with a moderate amount of intraperitoneal free fluid. - expl lap scheduled - converted to open - full report is not available yet - extubated post op , on RA - ABX - zosyn IV - hydration Tox screen positive for metamphet . Amphetamins nd cannabioids Lines : (Central Line Necessity Reviewed) Momin: OG: Nutrition: Analgesia: Anxiety/ delirium VTE Prophylaxis: scd Stress Ulcer Prophylaxis: PPI - GTT Glycemic Control: Plans in collaboration with bedside consultants and IM MDs. Discussed with RN to reach out if any questions or concerns A total of 31 minutes of critical care time was devoted to this patient today, required to treat and/or prevent further deterioration of critical care condition ( as above ) . MARBIN RODRIGUEZ MD Sep 02, 2021 16:04
--- NOTE | 2021-09-02 20:58 | Progress Note-Post Operative ---
Post-Operative Progess Note Surgeon (s)/Vocational Auto Body Instructor (s) Surgeon CUAUHTEMOC RICHARDSON DO Vocational Auto Body Instructor: Dr. Alford Pre-Operative Diagnosis diffuse abdominal pain, pneumoperitoneum Post-Operative Diagnosis gastric perforation Procedure & Operative Findings Date of Procedure 09/02/21 Procedure Performed/Findings diagnostic laparoscopy, converted to open with gastric biopsy and modified christiane patch for gastric perforation Anesthesia Type general Estimated Blood Loss Estimated blood loss (mL): minimal Specimens/Packing Specimens Removed gastric perforation CUAUHTEMOC RICHARDSON DO Sep 02, 2021 20:58
--- NOTE | 2021-09-02 21:34 | Consultation - Hospitalist ---
HPI History of Present Illness: HPI/Chief Complaint Nancy Saravia is a 46 year old female who presented with abdominal pain. She was found to have pneumoperitoneum and was admitted to general surgery. The hospitalist service has been consulted for medical management. She is still having severe abdominal pain. She denies any trauma. She denies drug use. She is not having fevers or chills. She denies chest pain. She denies shortness of breath and cough. She denies nausea and vomiting. Source: patient Exam Limitations: no limitations Date Seen 09/02/21 Attending Physician Layo Stafford DO PCP No,Local Physician Referring Physician Date of Admission Sep 02, 2021 at 09:00 Home Medications & Allergies Home Medications Reviewed patient Home Medication Reconciliation performed by pharmacy medication reconciliations soil conservation technician and/or nursing. Patients Allergies have been reviewed. Allergies Allergies Coded Allergies aspirin (Verified Allergy, Mild, Urticaria , 09/02/21) No Known Allergies (Unverified Allergy, Unknown, 08/14/20) Past Oujfxcg-Yvgnxc-Fzbach Hx Patient Social History Tobacco Use?: Yes Tobacco type used: Cigarettes Smoking Status: Current Everyday Smoker Smokeless Tobacco Frequency: Heavy User Use of E-Cig and/or Vaping dev: No Substance use?: Yes Substance type: Marijuana (Potentially laced with methamphetamine ) Additional substance use comme: OCCASIONAL USE Substance frequency: Couple times a week Alcohol Use?: No (Previous history of abuse, quit 10 years ago) Pt feels they are or have been: No Seasonal Allergies Seasonal Allergies: Yes Current Status Advance Directives: No Communicates: Verbally Primary Language: Guyanese Preferred Spoken Language: Guyanese Is interpretation needed?: No Implanted or Applied Medical D: None Past Medical History Surgeries: Orthopedic (Patella at 15yo, lumbar ) Gastroesophageal Reflux Degenerate Disk Disease Blood Disorders: No Family Medical History No Pertinent Family Hx Review of Systems Constitutional: no symptoms reported, see HPI Physical Exam Physical Exam Vital Signs Vital Signs - First Documented 09/02/21 04:02 Pulse 90 Resp 20 B/P (MAP) 143/91 (108) Pulse Ox 98 O2 Delivery Room Air Capillary Refill : Less Than 3 Seconds Height, Weight, BMI Height: '" Weight: lbs. oz. kg; 2456.74 BMI Method: General Appearance: No Apparent Distress, Anxious, Mild Distress HEENT: PERRL/EOMI, Other (dry mucous membranes) Neck: Normal Inspection, Supple Respiratory: Lungs Clear, Normal Breath Sounds, No Respiratory Distress Cardiovascular: Regular Rate, Rhythm, No Edema, No Murmur Gastrointestinal: Normal Bowel Sounds, Guarding, Tenderness Extremity: Normal Inspection, Non Tender, No Pedal Edema Neurologic/Psychiatric: Alert, Oriented x3, No Motor/Sensory Deficits Skin: Normal Color, Warm/Dry Results Results/Procedures Labs Laboratory Tests 09/02/21 04:13 Patient resulted labs reviewed. Imaging: Reviewed Imaging Report Assessment/Plan Assessment and Plan Assess & Plan/Chief Complaint Pneumoperitoneum Surgery primary CT showed pneumoperitoneum Planning for diagnostic laparoscopy Likely perforation NPO Pain regimen Cannibis abuse Methamphetamine abuse Opiate abuse Urine tox positive for marijuana, amphetamines, and opiates Thank you for the consult. Please contact the client application support engineer hospitalist with any questions or concerns. We will continue to follow as needed. Critical Care Critically Ill Patient Diagnosis/Problems Diagnosis/Problems (1) Pneumoperitoneum Status: Acute (2) Cannabis abuse Status: Acute (3) Methamphetamine abuse Status: Acute (4) Opioid abuse Status: Acute FRANCISCO BAEZA MD Sep 02, 2021 21:34
--- NOTE | 2021-09-02 23:16 | OPERATIVE REPORT ---
DATE OF SERVICE: 09/02/2021 PREOPERATIVE DIAGNOSES: Diffuse abdominal pain, pneumoperitoneum. POSTOPERATIVE DIAGNOSIS: Gastric perforation. PROCEDURE: Diagnostic laparoscopy converted to open with gastric biopsy and modified Royce patch for a gastric perforation. SURGEON: Cuauhtemoc Stafford DO CATALOGUE COMPILER: Dr. Alford, assisted in retraction, dissection and closure. ANESTHESIA: General. ESTIMATED BLOOD LOSS: Minimal. COMPLICATIONS: None. INDICATIONS: The patient is a 46-year-old female, who began having severe abdominal pain last night. She went to the Emergency Department for further evaluation this morning and was found to have pneumoperitoneum and diffuse amount of fluid throughout the abdomen. The patient on my review of CT scan is suggestive of gastric perforation on exam with peritonitis. She was discussed risks and benefits of procedure and wished to proceed. Consent was signed in the chart. DESCRIPTION OF PROCEDURE: The patient was taken to the operating suite. She was prepped and draped in sterile fashion. Timeout was performed. Local anesthetic was infiltrated just above the umbilicus. A 12 mm incision was made. Cautery was used to dissect down to the fascia, which was then scored and opened and a 12 mm trocar was then inserted into the abdomen and pneumoperitoneum was achieved. The abdomen was inspected. Diffuse amount of succuss throughout the abdomen. Under direct visualization of laparoscope, a 5 mm trocar was placed in the right side the abdomen and a 5 mm trocar was placed on the left side of the abdomen. The abdomen was then began suction irrigated and began inspecting the abdomen, multiple adhesions of the stomach and duodenum up to the liver, which a perforation was visualized at the distal portion of the stomach. At this point, a subsequent adhesions present, which were able to be bluntly broken up. It was decided to proceed in an open manner. Therefore, a midline incision was made extending the 12 mm trocar site towards the xiphoid, was able to visualize the perforation well. Biopsy forceps were used to take a small biopsy at the site of the perforation. A 3-0 silk suture pop-offs were then used to close the defect in interrupted fashion. The suture tails were then used to bring the omentum up and towels in order to hold the omentum as a patch. The abdomen was then irrigated and suctioned with copious amounts of irrigation. A 19 Jack drain was placed at the perforation site, brought out through the left 5 mm trocar site. This was sutured in place with 3-0 nylon. The other 5 mm trocar was removed. The fascia was then closed after copious amounts of irrigation was used to irrigate and suction again. The fascia was then closed using 1-0 looped PDS in a running fashion. The skin was then closed with romeo. The patient tolerated procedure well without any complications. She was taken to the recovery room in stable condition. The patient to remain n.p.o. until approximately 5 days and has upper GI contrast study for further evaluation for leak. Job ID: [id number] DocumentID: [id number] Dictated Date: 09/02/2021 21:05:07 Lotteries Agent Date: 09/02/2021 23:15:28 Dictated By: CUAUHTEMOC STAFFORD DO
[2021-09-03] MEDS: PIPERACILLIN/TAZO 4.5 GM/NS 100 ML IV SCH ×6 (04:46→19:35)
[2021-09-03 05:10] LABS: BASOPHILS % (AUTO) 0 % (0-10); EOSINOPHILS % (AUTO) 0 % (0-10); HEMATOCRIT 33 % (35-52); HEMOGLOBIN 10.8 g/dL (11.5-16.0); LYMPHOCYTES # (AUTO) 0.8 10^3/uL (1.0-4.0); LYMPHOCYTES % (AUTO) 6 % (12-44); MEAN CORPUSCULAR HEMOGLOBIN 30 pg (25-34); MEAN CORPUSCULAR HGB CONC 33 g/dL (32-36); MEAN CORPUSCULAR VOLUME 92 fL (80-99); MEAN PLATELET VOLUME 9.8 fL (9.0-12.2); MONOCYTES # (AUTO) 0.4 10^3/uL (0.0-1.0); MONOCYTES % (AUTO) 3 % (0-12); NEUTROPHILS # (AUTO) 11.1 10^3/uL (1.8-7.8); NEUTROPHILS % (AUTO) 90 % (42-75); PLATELET COUNT 327 10^3/uL (130-400); WHITE BLOOD COUNT 12.3 10^3/uL (4.3-11.0)
[2021-09-03] MEDS: morphine INJ 4 MG/ML 1 ML (VIAL/SYRINGE) IVP PRN ×5 (05:18→19:36)
[2021-09-03 05:27] LABS: POTASSIUM 3.4 MMOL/L (3.6-5.0)
[2021-09-03 05:28] LABS: CALCIUM 8.1 MG/DL (8.5-10.1)
[2021-09-03 05:33] LABS: CREATININE SERUM 0.64 MG/DL (0.60-1.30)
[2021-09-03] MEDS: POTASSIUM CL 10MEQ/50ML IVPB 50 ML IV SCH ×2 (05:48→06:26)
[2021-09-03] MEDS: LACTATED RINGERS 1,000 ML IV SCH ×2 (05:48→13:53)
[2021-09-03] MEDS: KCL 20 MEQ TAB (K-DUR) PO SCH (06:26)
[2021-09-03] MEDS: MAGNESIUM 1 GM/100 ML IVPB 100 ML IV SCH ×3 (06:26→09:42)
[2021-09-03] MEDS: NOREPINEPHRINE 8 MG/250 ML 250 ML IV SCH (06:26)
--- NOTE | 2021-09-03 07:09 | Progress Note - Surgery ---
JACKELINE MOURA 09/03/21 0709: Subjective Time Seen by a Provider: 06:30 Subjective/Events-last exam Patient seen at bedside this morning. She is post-op day 1 for diagnostic laparoscopy converted to open with gastric biopsy and modified Royce patch for a gastric perforation. She is resting comfortably in bed with an ice pack on her abdomen. She states she has minimal pain in the RLQ which is managed by pain medication. She has no nausea, vomiting, bowel movements, or flatus. She has no other complaints. Review of Systems General: No Chills, No Fatigue HEENT: No Head Aches, No Visual Changes Pulmonary: No Dyspnea, No Pleuritic Chest Pain Cardiovascular: No: Chest Pain, Edema Gastrointestinal: No: Nausea, Vomiting, Diarrhea, Constipation Genitourinary: No Dysuria, No Frequency Musculoskeletal: No: arm pain, leg pain Neurological: No: Weakness, Numbness Focused Exam Lactate Level 09/02/21 04:13: Lactic Acid Level 0.87 Objective Exam Vital Signs Date Time Temp Pulse Resp B/P (MAP) Pulse Ox O2 Delivery O2 Flow Rate FiO2 09/03/21 06:00 51 13 143/91 97 Room Air 09/03/21 05:00 72 20 140/82 98 Room Air 09/03/21 04:00 36.8 09/03/21 04:00 Room Air 09/03/21 04:00 78 27 144/85 97 Room Air 09/03/21 03:00 55 12 136/85 98 Room Air 09/03/21 02:00 57 17 146/86 97 Room Air 09/03/21 01:09 49 09/03/21 01:00 53 12 154/87 99 Room Air 09/03/21 00:00 51 15 128/87 99 Room Air 09/03/21 00:00 Room Air 09/02/21 23:00 59 13 128/80 99 Room Air 09/02/21 22:00 70 30 126/77 97 Room Air 09/02/21 21:00 57 13 120/73 98 Room Air 09/02/21 20:14 Room Air 09/02/21 20:00 71 14 136/83 98 Room Air 09/02/21 19:49 37.0 09/02/21 19:17 62 09/02/21 19:00 69 20 136/87 99 Room Air 09/02/21 18:45 38.0 09/02/21 18:00 77 19 123/73 96 Room Air 09/02/21 17:00 90 16 116/69 95 Room Air 09/02/21 16:00 Room Air 09/02/21 16:00 87 16 152/84 94 Room Air 09/02/21 15:00 86 16 151/92 95 Room Air 09/02/21 15:00 37.3 09/02/21 14:05 87 16 165/102 94 Room Air 09/02/21 14:03 89 09/02/21 14:00 36.8 18 155/92 (113) 96 Room Air 09/02/21 14:00 Room Air 09/02/21 13:50 18 153/88 (109) 97 Room Air 09/02/21 13:45 Room Air 09/02/21 13:42 Room Air 09/02/21 13:40 18 163/99 (120) 100 OxyMask 3 09/02/21 13:40 OxyMask 3 09/02/21 13:32 OxyMask 6 09/02/21 13:30 18 166/99 (121) 100 OxyMask 6 09/02/21 13:27 OxyMask 6 09/02/21 13:20 18 175/105 (128) 100 OxyMask 6 09/02/21 13:15 OxyMask 6 09/02/21 13:10 18 173/102 (125) 100 OxyMask 6 09/02/21 13:03 OxyMask 6 09/02/21 13:03 37.0 20 164/92 (116) 100 OxyMask 6 09/02/21 12:26 Room Air 09/02/21 11:00 96 14 130/76 97 Room Air 09/02/21 10:16 86 130/79 09/02/21 10:15 86 130/79 09/02/21 10:00 80 19 126/80 99 Room Air 09/02/21 09:33 96 Room Air 09/02/21 09:00 86 09/02/21 09:00 37.0 81 18 130/79 97 Room Air 09/02/21 08:04 88 16 132/74 97 Room Air I & O 09/03/21 07:00 Intake Total 9340 ml Output Total 2190 ml Balance 7150 ml Capillary Refill : Less Than 3 Seconds General Appearance: No Apparent Distress, WD/WN HEENT: PERRL/EOMI, Normal ENT Inspection Neck: Normal Inspection, Supple Respiratory: Chest Non Tender, Lungs Clear, Normal Breath Sounds, No Respiratory Distress Cardiovascular: Regular Rate, Rhythm, No Edema Peripheral Pulses: 2+ Dorsalis Pedis (R), 2+ Left Dors-Pedis (L), 2+ Radial Pulses (R), 2+ Radial Pulses (L) Gastrointestinal: non tender, soft; No distended, No guarding, No rebound; other (Midline incision clean and dry. Drain shows less than 5mL drainage which is serosanginous) Extremity: Normal Inspection, Non Tender, No Pedal Edema Neurologic/Psychiatric: Alert, Oriented x3, No Motor/Sensory Deficits, Normal Mood/Affect Skin: Normal Color, Warm/Dry Lymphatic: No Adenopathy Results Lab Laboratory Tests 09/02/21 10:30: Urine Test NEGATIVE, Urine Opiates Screen POSITIVEH, Urine Oxycodone Screen NEGATIVE, Urine Methadone Screen NEGATIVE, Urine Propoxyphene Screen NEGATIVE, Urine Barbiturates Screen NEGATIVE, Ur Tricyclic Antidepressants Screen NEGATIVE, Urine Phencyclidine Screen NEGATIVE, Urine Amphetamines Screen POSITIVEH, Urine Methamphetamines Screen POSITIVEH, Urine Benzodiazepines Screen NEGATIVE, Urine Cocaine Screen NEGATIVE, Urine Cannabinoids Screen POSITIVEH, SARS-CoV-2 RNA (RT-PCR) Not Detected 09/03/21 04:25: White Blood Count 12.3H, Red Blood Count 3.60L, Hemoglobin 10.8L, Hematocrit 33L , Mean Corpuscular Volume 92, Mean Corpuscular Hemoglobin 30, Mean Corpuscular Hemoglobin Concent 33, Red Cell Distribution Width 13.5, Platelet Count 327, Mean Platelet Volume 9.8, Immature Granulocyte % (Auto) 0, Neutrophils (%) (Auto) 90H, Lymphocytes (%) (Auto) 6L, Monocytes (%) (Auto) 3, Eosinophils (%) (Auto) 0, Basophils (%) (Auto) 0, Neutrophils # (Auto) 11.1H, Lymphocytes # (Auto) 0.8L, Monocytes # (Auto) 0.4, Eosinophils # (Auto) 0.0, Basophils # (Auto) 0.0, Immature Granulocyte # (Auto) 0.0, Sodium Level 137, Potassium Level 3.4L, Chloride Level 103, Carbon Dioxide Level 22, Anion Gap 12, Blood Urea Nitrogen 7, Creatinine 0.64, Estimat Glomerular Filtration Rate 101, BUN/Creatinine Ratio 11, Glucose Level 101, Calcium Level 8.1L, Magnesium Level 1.7 Microbiology 09/02/21 MRSA Screen - Final, Complete Meds Item Value Date Time Magnesium Sulfate/ 100 ml @ 100 mls/hr 09/03/21 0830 Dextrose Q1H/IV Potassium Chloride 50 ml @ 0 mls/hr 09/03/21 0600 Fluconazole/ 50 ml @ 100 mls/hr 09/03/21 0900 Sodium Chloride/ DAILY/IV Miscellaneous Magnesium Sulfate/ 100 ml @ 0 mls/hr 09/03/21 0600 Dextrose DAILY@0600/IV Potassium Chloride 40 meq 09/03/21 0600 (K Dur Tablet) DAILY@0600/PO Potassium Chloride 50 ml @ 50 mls/hr 09/03/21 0545 Lactated Ringer's 1,000 ml @ 125 mls/hr 09/02/21 1330 Pantoprazole 200 100 ml @ 4 mls/hr 09/02/21 1330 mg/Sodium Chloride Q24H/IV 09/02/21 1436 Piperacillin Sod/ 120 ml @ 30 mls/hr 09/02/21 1200 Tazobactam Sod Q8H/IV 09/03/21 0446 4.5 gm/Sodium Chloride Lactated Ringer's 1,000 ml @ 0 mls/hr 09/02/21 1130 Lactated Ringer's 1,000 ml @ 0 mls/hr 09/02/21 1100 Vasopressin 20 101 ml @ 9.09 mls/hr 09/02/21 1000 unit/Sodium Q11H7M/IV Chloride Epinephrine HCl 4 252 ml @ 24.948 mls/hr 09/02/21 1000 mg/Sodium Chloride UD/IV Norepinephrine 250 ml @ 12.375 mls/hr 09/02/21 1000 Bitartrate [id number] Ondansetron HCl 4 mg 09/02/21 1000 (Zofran Q6H PRN/IVP Injection (Sdv)) Morphine Sulfate 2 mg 09/02/21 0930 (morphine Q2H PRN/IVP 09/03/21 0518 INJECTION) Miscellaneous 09/02/21 0500 (Hold Metformin- UD/IV Contrast Received) Assessment/Plan Assessment/Plan Assessment/Plan Diffuse abdominal pain Pneumoperitoneum post-op day 1 for diagnostic laparoscopy converted to open with gastric biopsy and modified Royce patch for a gastric perforation Marijuana use Amphetamine use Opioid use Continue patient on Zosyn and fluconazole Continue pain managment Continue sequential compression devices Continue IV fluids Continue electrolyte supplementation Continue NG tube Continue N.P.O. Begin Clinimix Begin incentive spirometer LAYO RICHARDSON DO 09/03/211917: Subjective Subjective/Events-last exam Patient doing okay. Pain controlled. Pain is primarily in the right side of abdomen. Patient having some fever overnight. Drain is serosanguineous. Momin for urine output. NG tube in place. Patient n.p.o. Objective Exam General Appearance: No Apparent Distress, WD/WN HEENT: PERRL/EOMI, Normal ENT Inspection Neck: Full Range of Motion, Normal Inspection Respiratory: Chest Non Tender, No Accessory Muscle Use, No Respiratory Distress Cardiovascular: Regular Rate, Rhythm, No JVD Gastrointestinal: soft, tenderness, other (Midline incision clean and dry. Drain is serosanginous) Extremity: Normal Inspection, Non Tender Neurologic/Psychiatric: Alert, Oriented x3, No Motor/Sensory Deficits, Normal Mood/Affect Skin: Normal Color, Warm/Dry Lymphatic: No Adenopathy Assessment/Plan Assessment/Plan Assessment/Plan Diffuse abdominal pain Pneumoperitoneum post-op day 1 for diagnostic laparoscopy converted to open with gastric biopsy and modified Royce patch for a gastric perforation Marijuana use Amphetamine use Opioid use Continue patient on Zosyn and fluconazole Continue pain managment Continue sequential compression devices Continue IV fluids Continue electrolyte supplementation Continue NG tube Continue N.P.O. We will start TPN pharmacy to dose incentive spirometer Supervisory-Addendum Brief Verification & Attestation Participated in pt care: history, MDM, physical Personally performed: exam, history, MDM, supervision of care Care discussed with: Medical Student Procedures: n/a Results interpretation: Verified all documentation Verification and Attestation of Medical Student E/M Service A medical student performed and documented this service in my presence. I reviewed and verified all information documented by the medical student and made modifications to such information, when appropriate. I personally performed the physical exam and medical decision making. Layo Richardson, Sep 03, 2021,19:18 FEBRUARYJACKELINE Villalobos Sep 03, 2021 07:09 LAYO RICHARDSON DO Sep 03, 2021 19:18
[2021-09-03] MEDS: FLUCONAZOLE 200 MG/100 ML 50 ML, EMPTY IV BAG (PVC) 1 EA IV SCH ×2 (08:51)
[2021-09-03] MEDS: VASOPRESSIN INJECTION 20 UNIT in NS (IVPB) 100 ML IV SCH ×2 (08:52→20:33)
[2021-09-03] MEDS: MUPIROCIN 2% OINT 22 GM (BACTROBAN) TUBE NSEACH SCH ×2 (09:06→20:06)
--- NOTE | 2021-09-03 10:19 | Tele-ICU Progress Note ---
Subjective Date Seen by a Provider: Sep 03, 2021 Time Seen by a Provider: 10:19 Sepsis Event Evaluation Height, Weight, BMI Height: '" Weight: lbs. oz. kg; 2456.74 BMI Method: Focused Exam Lactate Level 09/02/21 04:13: Lactic Acid Level 0.87 Exam Exam Patient acknowledged, consented, and participated in this virtual visit which was conducted using real time audio/video Vital Signs Date Time Temp Pulse Resp B/P (MAP) Pulse Ox O2 Delivery O2 Flow Rate FiO2 09/03/21 10:00 52 15 99 Room Air 09/03/21 09:00 49 12 162/88 99 Room Air 09/03/21 08:52 53 177/98 09/03/21 08:37 36.6 09/03/21 08:30 Room Air 09/03/21 08:00 49 16 177/98 99 Room Air 09/03/21 07:00 63 15 160/94 99 Room Air 09/03/21 07:00 56 09/03/21 06:00 51 13 143/91 97 Room Air 09/03/21 05:00 72 20 140/82 98 Room Air 09/03/21 04:00 36.8 09/03/21 04:00 Room Air 09/03/21 04:00 78 27 144/85 97 Room Air 09/03/21 03:00 55 12 136/85 98 Room Air 09/03/21 02:00 57 17 146/86 97 Room Air 09/03/21 01:09 49 09/03/21 01:00 53 12 154/87 99 Room Air 09/03/21 00:00 51 15 128/87 99 Room Air 09/03/21 00:00 Room Air 09/02/21 23:00 59 13 128/80 99 Room Air 09/02/21 22:00 70 30 126/77 97 Room Air 09/02/21 21:00 57 13 120/73 98 Room Air 09/02/21 20:14 Room Air 09/02/21 20:00 71 14 136/83 98 Room Air 09/02/21 19:49 37.0 09/02/21 19:17 62 09/02/21 19:00 69 20 136/87 99 Room Air 09/02/21 18:45 38.0 09/02/21 18:00 77 19 123/73 96 Room Air 09/02/21 17:00 90 16 116/69 95 Room Air 09/02/21 16:00 Room Air 09/02/21 16:00 87 16 152/84 94 Room Air 09/02/21 15:00 86 16 151/92 95 Room Air 09/02/21 15:00 37.3 09/02/21 14:05 87 16 165/102 94 Room Air 09/02/21 14:03 89 09/02/21 14:00 36.8 18 155/92 (113) 96 Room Air 09/02/21 14:00 Room Air 09/02/21 13:50 18 153/88 (109) 97 Room Air 09/02/21 13:45 Room Air 09/02/21 13:42 Room Air 09/02/21 13:40 18 163/99 (120) 100 OxyMask 3 09/02/21 13:40 OxyMask 3 09/02/21 13:32 OxyMask 6 09/02/21 13:30 18 166/99 (121) 100 OxyMask 6 09/02/21 13:27 OxyMask 6 09/02/21 13:20 18 175/105 (128) 100 OxyMask 6 09/02/21 13:15 OxyMask 6 09/02/21 13:10 18 173/102 (125) 100 OxyMask 6 09/02/21 13:03 OxyMask 6 09/02/21 13:03 37.0 20 164/92 (116) 100 OxyMask 6 09/02/21 12:26 Room Air 09/02/21 11:00 96 14 130/76 97 Room Air I & O 09/03/21 07:00 Intake Total 9340 ml Output Total 2190 ml Balance 7150 ml Height & Weight Height: '" Weight: lbs. oz. kg; 2456.74 BMI Method: General Appearance: No Apparent Distress, WD/WN HEENT: PERRL/EOMI, Normal ENT Inspection Neck: Normal Inspection, Supple Respiratory: Chest Non Tender, Lungs Clear, Normal Breath Sounds, No Respiratory Distress Cardiovascular: Regular Rate, Rhythm, No Edema Capillary Refill: Less Than 3 Seconds Peripheral Pulses: 2+ Dorsalis Pedis (R), 2+ Left Dors-Pedis (L), 2+ Radial Pulses (R), 2+ Radial Pulses (L) Gastrointestinal: non tender, soft; No distended, No guarding, No rebound; other (Midline incision clean and dry. Drain shows less than 5mL drainage which is serosanginous) Extremity: Normal Inspection, Non Tender, No Pedal Edema Neurologic/Psychiatric: Alert, Oriented x3, No Motor/Sensory Deficits, Normal Mood/Affect Skin: Normal Color, Warm/Dry Lymphatic: No Adenopathy Results Lab Laboratory Tests 09/02/21 04:13 09/03/21 04:25 Assessment/Plan Assessment/Plan (Tele-ICU Physician , consultation) Available chart/ vitals / labs / Images reviewed H&P is from ER notes Patient's information available about PMH, Shx, Fhx allergy reviewed in EMR. ROS as per chart and RN report Now in ICU, hemodynamically stable Video assessment done using teleICU camera, on arrival to ICU , and now post op Discussed with RN. Consultants: SX Hospital course: 09/02 - trnsferred to ICU from other facility with small pneumoperitoneum with a moderate amount of intraperitoneal free fluid. 09/02- s/p SX A/P Small pneumoperitoneum with a moderate amount of intraperitoneal free fluid. - expl lap scheduled - converted to open with gastric biopsy and modified Royce patch for a gastric perforation 09/02 - extubated post op , on RA -PPI gtt - ABX - zosyn IV - hydration - pain conrol - PO to start when ok with sx anemia -post op Tox screen positive for metamphet . Amphetamins nd cannabioids Plans in collaboration with bedside consultants and IM MDs. Discussed with RN to reach out if any questions or concerns A total of 20 minutes of critical care time was devoted to this patient today, required to treat and/or prevent further deterioration of critical care condition ( as above ) . MARBIN RODRIGUEZ MD Sep 03, 2021 10:19
--- NOTE | 2021-09-03 10:54 | Anesthesia-General Post-Op ---
General Patient Condition Mental Status/LOC: Same as Preop Cardiovascular: Satisfactory Nausea/Vomiting: Absent Respiratory: Satisfactory Pain: Controlled Complications: Absent Post Op Complications Complications None Follow Up Care/Instructions Patient Instructions None needed. Anesthesia/Patient Condition Patient Condition Patient is doing well, no complaints, stable vital signs, no apparent adverse anesthesia problems. No complications reported per nursing. CALLI NGO CRNA Sep 03, 2021 10:54
--- NOTE | 2021-09-03 11:17 | Diagnostic Imaging Report ---
INDICATION: Central venous catheter assessment. COMPARISON: None FINDINGS: Heart size and pulmonary vascularity are within normal limits. There is no pneumothorax or consolidation. No pleural fluid is seen. Nasogastric tube passes below the diaphragm. Left upper extremity PICC reaches the right atrium. There is no pneumothorax or abnormal mass effect. IMPRESSION: Left upper extremity PICC reaches the right atrium and could be withdrawn several centimeters if indicated. Dictated by: Dictated on workstation # [id number]
--- NOTE | 2021-09-03 12:25 | Diagnostic Imaging Report ---
INDICATION: PICC line reposition. COMPARISON: Correlation is made with the prior study from earlier this same day. FINDINGS: The PICC line has been pulled back somewhat but still appears to have the tip in the right atrium. This could be pulled back about 3 cm which would put it at the cavoatrial junction. The NG tube passes below the diaphragm. The lungs appear to be fairly clear apart from some minimal subsegmental atelectasis in the right base. IMPRESSION: The PICC line continues to be in the upper right atrium. This should be pulled back approximately 3 cm which should put this at the cavoatrial junction. Dictated by: Dictated on workstation # [id number]
[2021-09-03] MEDS ORDERED: guaiFENesin/DM (ROBITUSSIN DM) 10 ML UDC PO PRN (13:15)
[2021-09-03] MEDS ORDERED: FUROSEMIDE 40 MG/4 ML INJ (LASIX) IVP ONE (13:15)
[2021-09-03] MEDS ORDERED: RT-ALBUTEROL/IPRATROPIUM 3 ML (DUONEB) VIAL INH PRN ×2 (13:15→20:45)
[2021-09-03] MEDS: PANTOPRAZOLE INJECTION 200 MG in NS (IVPB) 100 ML IV SCH (13:27)
[2021-09-03] MEDS: hydrALAZINE (APESOLINE) 20 MG/ML VIAL IV PRN (13:50)
[2021-09-03] MEDS ORDERED: TPN IV SCH (19:15)
[2021-09-03] MEDS: D5 1/2 NS W/KCL 20 MEQ/L 1,000 ML IV SCH (19:36)
[2021-09-03 20:35] VITALS: BP 142/81
[2021-09-04] MEDS: hydrALAZINE (APESOLINE) 20 MG/ML VIAL IV PRN (02:10)
[2021-09-04] MEDS: LACTATED RINGERS 1,000 ML IV SCH (03:24)
[2021-09-04] MEDS: NOREPINEPHRINE 8 MG/250 ML 250 ML IV SCH (03:24)
[2021-09-04] MEDS: PIPERACILLIN/TAZO 4.5 GM/NS 100 ML IV SCH ×6 (03:41→21:57)
[2021-09-04 04:06] LABS: HEMATOCRIT 31 % (35-52); HEMOGLOBIN 10.4 g/dL (11.5-16.0); MEAN CORPUSCULAR HEMOGLOBIN 30 pg (25-34); MEAN CORPUSCULAR HGB CONC 33 g/dL (32-36); MEAN CORPUSCULAR VOLUME 91 fL (80-99); MEAN PLATELET VOLUME 9.2 fL (9.0-12.2); PLATELET COUNT 351 10^3/uL (130-400); WHITE BLOOD COUNT 9.2 10^3/uL (4.3-11.0)
[2021-09-04 04:18] LABS: ALBUMIN 2.6 GM/DL (3.2-4.5); POTASSIUM 4.6 MMOL/L (3.6-5.0)
[2021-09-04 04:20] LABS: CALCIUM 7.2 MG/DL (8.5-10.1)
[2021-09-04 04:21] LABS: TOTAL PROTEIN 5.1 GM/DL (6.4-8.2)
[2021-09-04 04:23] LABS: BILIRUBIN,TOTAL 0.3 MG/DL (0.1-1.0)
[2021-09-04 04:24] LABS: CREATININE SERUM 0.7 MG/DL (0.60-1.30); PHOSPHORUS 1.2 MG/DL (2.3-4.7)
[2021-09-04 04:27] LABS: MAGNESIUM 1.5 MG/DL (1.6-2.4)
[2021-09-04] MEDS: MAGNESIUM 1 GM/100 ML IVPB 100 ML IV SCH ×3 (04:39→05:15)
[2021-09-04] MEDS: POTASSIUM CL 10MEQ/50ML IVPB 50 ML IV SCH (04:39)
[2021-09-04] MEDS: KCL 20 MEQ TAB (K-DUR) PO SCH (04:40)
[2021-09-04] MEDS: VASOPRESSIN INJECTION 20 UNIT in NS (IVPB) 100 ML IV SCH (04:40)
[2021-09-04] MEDS ORDERED: inSUlin (REGULAR) HUMAN 1 UNIT/0.01 ML (CHARGE PER UNIT) SC ONE (05:00)
[2021-09-04] MEDS: morphine INJ 4 MG/ML 1 ML (VIAL/SYRINGE) IVP PRN ×8 (05:14→23:32)
--- NOTE | 2021-09-04 06:59 | Progress Note - Surgery ---
JACKELINE MOURA 09/04/21 0659: Subjective Time Seen by a Provider: 06:45 Subjective/Events-last exam Patient seen at bedside this morning. She is post-op day 2. She is resting comfortably but states that her pain is still 7/10. She has no nausea, vomiting, or diarrhea. She has not yet had a bowel movement nor passed flatus. She is urinating appropriately. Her drain is draining adequately and is serosanguinous in color. Review of Systems General: No Chills, No Fatigue HEENT: No Head Aches, No Visual Changes Pulmonary: No Dyspnea, No Pleuritic Chest Pain Cardiovascular: No: Chest Pain, Edema Gastrointestinal: Abdominal Pain; No: Nausea, Vomiting, Diarrhea Genitourinary: No Dysuria, No Frequency Musculoskeletal: No: arm pain, leg pain Neurological: No: Weakness, Numbness Focused Exam Lactate Level 09/02/21 04:13: Lactic Acid Level 0.87 Objective Exam Vital Signs Date Time Temp Pulse Resp B/P (MAP) Pulse Ox O2 Delivery O2 Flow Rate FiO2 09/04/21 06:00 90 18 124/89 96 Room Air 09/04/21 05:00 87 17 130/88 98 Room Air 09/04/21 04:00 Room Air 09/04/21 04:00 96 20 132/76 95 Room Air 09/04/21 04:00 36.7 09/04/21 03:00 96 18 137/78 96 Room Air 09/04/21 02:00 80 18 150/92 98 Room Air 09/04/21 01:00 74 09/04/21 00:45 76 17 158/101 99 Room Air 09/04/21 00:00 Room Air 09/04/21 00:00 71 14 168/107 98 Room Air 09/04/21 00:00 36.5 09/03/21 23:00 72 17 165/102 96 Room Air 09/03/21 22:00 75 15 150/98 99 Room Air 09/03/21 21:00 79 15 148/96 98 Room Air 09/03/21 20:35 92 97 21 09/03/21 20:00 80 17 153/92 98 Room Air 09/03/21 20:00 37.3 09/03/21 20:00 Room Air 09/03/21 19:12 87 09/03/21 19:00 84 17 132/83 97 Room Air 09/03/21 18:00 92 17 142/81 95 Room Air 09/03/21 17:00 87 17 135/84 97 Room Air 09/03/21 16:23 Room Air 09/03/21 16:00 37.6 09/03/21 16:00 83 16 147/82 97 Room Air 09/03/21 15:00 77 16 146/86 96 Room Air 09/03/21 14:00 73 15 167/100 99 Room Air 09/03/21 13:00 69 14 173/102 98 Room Air 09/03/21 12:41 Room Air 09/03/21 12:24 55 09/03/21 12:00 56 13 196/98 99 Room Air 09/03/21 11:37 36.6 09/03/21 11:27 66 24 190/93 98 Room Air 09/03/21 11:00 66 24 95 Room Air 09/03/21 10:00 52 15 99 Room Air 09/03/21 09:00 49 12 162/88 99 Room Air 09/03/21 08:52 53 177/98 09/03/21 08:37 36.6 09/03/21 08:30 Room Air 09/03/21 08:00 49 16 177/98 99 Room Air 09/03/21 07:00 63 15 160/94 99 Room Air 09/03/21 07:00 56 I & O 09/04/21 06:59 Intake Total 300 ml Output Total 4105 ml Balance -3805 ml Capillary Refill : Less Than 3 Seconds General Appearance: No Apparent Distress, WD/WN HEENT: PERRL/EOMI, Normal ENT Inspection Neck: Full Range of Motion, Normal Inspection Respiratory: Chest Non Tender, No Accessory Muscle Use, No Respiratory Distress Cardiovascular: Regular Rate, Rhythm, No Edema, No JVD Peripheral Pulses: 2+ Dorsalis Pedis (R), 2+ Left Dors-Pedis (L), 2+ Radial Pulses (R), 2+ Radial Pulses (L) Gastrointestinal: non tender, soft; No guarding, No rebound; other (Midline incision clean and dry. Drain is serosanginous. Non-erythematous.) Extremity: Normal Inspection, Non Tender, Other (Left arm PICC line ) Neurologic/Psychiatric: Alert, Oriented x3, No Motor/Sensory Deficits, Normal Mood/Affect Skin: Normal Color, Warm/Dry Lymphatic: No Adenopathy Results Lab Laboratory Tests 09/03/21 11:28: Glucometer 90 09/03/21 18:06: Glucometer 72 09/04/21 04:00: White Blood Count 9.2, Red Blood Count 3.43L, Hemoglobin 10.4L, Hematocrit 31L, Mean Corpuscular Volume 91, Mean Corpuscular Hemoglobin 30, Mean Corpuscular Hemoglobin Concent 33, Red Cell Distribution Width 13.7, Platelet Count 351, Mean Platelet Volume 9.2, Sodium Level 133L, Potassium Level 4.6, Chloride Level 100, Carbon Dioxide Level 25, Anion Gap 8, Blood Urea Nitrogen 7, Creatinine 0.70, Estimat Glomerular Filtration Rate 91, BUN/Creatinine Ratio 10, Glucose Level 368H, Calcium Level 7.2L, Corrected Calcium 8.3L, Phosphorus Level 1.2L, Magnesium Level 1.5L, Total Bilirubin 0.3, Aspartate Amino Transf (AST/SGOT) 10, Alanine Aminotransferase (ALT/SGPT) 8, Alkaline Phosphatase 48, Total Protein 5.1L, Albumin 2.6L Microbiology 09/02/21 Blood Culture - Preliminary, Resulted No growth 09/02/21 MRSA Screen - Final, Complete Meds Item Value Date Time Magnesium Sulfate/ 100 ml @ 100 mls/hr 09/04/21 0500 Dextrose Q1H/IV 09/04/21 0515 Albuterol/ 3 ml 09/03/21 2045 Ipratropium RTQ4HR PRN/INH (Duoneb Inhalation Solution) IV Miscellaneous PHARMACY TO DOSE TPN 09/03/21 1915 Supplies UD/IV (Tpn) Potassium 1,000 ml @ 70 mls/hr 09/03/21 1845 Chloride/Dextrose/ [id number]/IV 09/03/21 1936 Sod Cl Hydralazine HCl 10 mg 09/03/21 1315 (Apresoline Q4HR PRN/IV 09/04/21 0210 Injection) Mupirocin USE CLEAN SWABS PLACE ... 09/03/21 0900 (Bactroban BID/NSEACH 09/03/212005 Ointment) Fluconazole/ 50 ml @ 100 mls/hr 09/03/21 0900 Sodium Chloride/ DAILY/IV 09/03/21 0851 Miscellaneous Potassium Chloride 50 ml @ 0 mls/hr 09/03/21 0600 Magnesium Sulfate/ 100 ml @ 0 mls/hr 09/03/21 0600 Dextrose DAILY@0600/IV Potassium Chloride 40 meq 09/03/21 0600 (K Dur Tablet) DAILY@0600/PO Lactated Ringer's 1,000 ml @ 75 mls/hr 09/02/21 1330 Pantoprazole 200 100 ml @ 4 mls/hr 09/02/21 1330 mg/Sodium Chloride Q24H/IV 09/03/21 1327 Piperacillin Sod/ 120 ml @ 30 mls/hr 09/02/21 1200 Tazobactam Sod Q8H/IV 09/04/21 0341 4.5 gm/Sodium Chloride Lactated Ringer's 1,000 ml @ 0 mls/hr 09/02/21 1100 Lactated Ringer's 1,000 ml @ 0 mls/hr 09/02/21 1130 Vasopressin 20 101 ml @ 9.09 mls/hr 09/02/21 1000 unit/Sodium Q11H7M/IV Chloride Epinephrine HCl 4 252 ml @ 24.948 mls/hr 09/02/21 1000 mg/Sodium Chloride UD/IV Norepinephrine 250 ml @ 12.375 mls/hr 09/02/21 1000 Bitartrate [id number]/IV Ondansetron HCl 4 mg 09/02/21 1000 (Zofran Q6H PRN/IVP Injection (Sdv)) Morphine Sulfate 2 mg 09/02/21 0930 (morphine Q2H PRN/IVP 09/04/21 0514 INJECTION) Assessment/Plan Assessment/Plan Assessment/Plan Diffuse abdominal pain Pneumoperitoneum post-op day 2 for diagnostic laparoscopy converted to open with gastric biopsy and modified Royce patch for a gastric perforation Marijuana use Amphetamine use Opioid use Continue patient on Zosyn and fluconazole Continue pain managment Continue sequential compression devices Continue IV fluids Continue electrolyte supplementation Continue NG tube Continue N.P.O. Continue incentive spirometer Will start TPN today, pharmacy to dose Consider continuing hydralazine as needed if blood pressure rises > 150 systolic CUAUHTEMOC STAFFORD DO 09/04/211939: Subjective Subjective/Events-last exam Patient states that she is doing okay. She is still having some pain but better controlled. She is feeling better than when she came in. She has no bowel function yet she states. Has NG tube. JACQUELINE drain in place with serosanguineous drainage. Currently n.p.o. Starting TPN tonight. Objective Exam General Appearance: No Apparent Distress, WD/WN HEENT: PERRL/EOMI, Normal ENT Inspection Neck: Normal Inspection Gastrointestinal: soft, tenderness (Incisional), other (Midline incision clean and dry. Drain is serosanginous. Non-erythematous.) Extremity: Normal Inspection, Non Tender, Other (Left arm PICC line ) Neurologic/Psychiatric: Alert, Oriented x3, Normal Mood/Affect Skin: Normal Color, Warm/Dry Lymphatic: No Adenopathy Assessment/Plan Assessment/Plan Assessment/Plan Diffuse abdominal pain Pneumoperitoneum post-op day 2 for diagnostic laparoscopy converted to open with gastric biopsy and modified Royce patch for a gastric perforation Marijuana use Amphetamine use Opioid use Continue patient on Zosyn and fluconazole Continue pain managment Continue sequential compression devices Continue IV fluids Continue electrolyte supplementation Continue NG tube Continue N.P.O. Continue incentive spirometer Will start TPN today, pharmacy to dose Accurat i/o Supervisory-Addendum Brief Verification & Attestation Participated in pt care: history, MDM, physical Personally performed: exam, history, MDM, supervision of care Care discussed with: Medical Student Procedures: n/a Results interpretation: Verified all documentation Verification and Attestation of Medical Student E/M Service A medical student performed and documented this service in my presence. I reviewed and verified all information documented by the medical student and made modifications to such information, when appropriate. I personally performed the physical exam and medical decision making. Cuauhtemoc Stafford, Sep 04, 2021,19:40 JACKELINE MOURA Sep 04, 2021 06:59 CUAUHTEMOC STAFFORD DO Sep 04, 2021 19:40
[2021-09-04] MEDS: FLUCONAZOLE 200 MG/100 ML 50 ML, EMPTY IV BAG (PVC) 1 EA IV SCH ×2 (08:45)
[2021-09-04] MEDS: MUPIROCIN 2% OINT 22 GM (BACTROBAN) TUBE NSEACH SCH (08:45)
[2021-09-04] MEDS: D5 1/2 NS W/KCL 20 MEQ/L 1,000 ML IV SCH (09:37)
[2021-09-04] MEDS ORDERED: SODIUM PHOSPHATE INJ 7.5 MM in NS (IVPB) 50 ML INJ SCH (10:00)
--- NOTE | 2021-09-04 10:13 | Tele-ICU Progress Note ---
Subjective Date Seen by a Provider: Sep 04, 2021 Time Seen by a Provider: 10:13 Sepsis Event Evaluation Height, Weight, BMI Height: '" Weight: lbs. oz. kg; 2456.74 BMI Method: Focused Exam Lactate Level 09/02/21 04:13: Lactic Acid Level 0.87 Exam Exam Patient acknowledged, consented, and participated in this virtual visit which was conducted using real time audio/video Vital Signs Date Time Temp Pulse Resp B/P (MAP) Pulse Ox O2 Delivery O2 Flow Rate FiO2 09/04/21 09:00 90 19 131/75 96 Room Air 09/04/21 08:55 97 Room Air 09/04/21 08:02 Room Air 09/04/21 08:00 81 26 132/97 95 Room Air 09/04/21 07:50 36.3 09/04/21 07:00 76 09/04/21 07:00 82 17 133/92 98 Room Air 09/04/21 06:00 90 18 124/89 96 Room Air 09/04/21 05:00 87 17 130/88 98 Room Air 09/04/21 04:00 Room Air 09/04/21 04:00 96 20 132/76 95 Room Air 09/04/21 04:00 36.7 09/04/21 03:00 96 18 137/78 96 Room Air 09/04/21 02:00 80 18 150/92 98 Room Air 09/04/21 01:00 74 09/04/21 00:45 76 17 158/101 99 Room Air 09/04/21 00:00 Room Air 09/04/21 00:00 71 14 168/107 98 Room Air 09/04/21 00:00 36.5 09/03/21 23:00 72 17 165/102 96 Room Air 09/03/21 22:00 75 15 150/98 99 Room Air 09/03/21 21:00 79 15 148/96 98 Room Air 09/03/21 20:35 92 97 21 09/03/21 20:00 80 17 153/92 98 Room Air 09/03/21 20:00 37.3 09/03/21 20:00 Room Air 09/03/21 19:12 87 09/03/21 19:00 84 17 132/83 97 Room Air 09/03/21 18:00 92 17 142/81 95 Room Air 09/03/21 17:00 87 17 135/84 97 Room Air 09/03/21 16:23 Room Air 09/03/21 16:00 37.6 09/03/21 16:00 83 16 147/82 97 Room Air 09/03/21 15:00 77 16 146/86 96 Room Air 09/03/21 14:00 73 15 167/100 99 Room Air 09/03/21 13:00 69 14 173/102 98 Room Air 09/03/21 12:41 Room Air 09/03/21 12:24 55 09/03/21 12:00 56 13 196/98 99 Room Air 09/03/21 11:37 36.6 09/03/21 11:27 66 24 190/93 98 Room Air 09/03/21 11:00 66 24 95 Room Air I & O 09/04/21 07:00 Intake Total 640 ml Output Total 4605 ml Balance -3965 ml Height & Weight Height: '" Weight: lbs. oz. kg; 2456.74 BMI Method: General Appearance: No Apparent Distress, WD/WN HEENT: PERRL/EOMI, Normal ENT Inspection Neck: Full Range of Motion, Normal Inspection Respiratory: Chest Non Tender, No Accessory Muscle Use, No Respiratory Distress Cardiovascular: Regular Rate, Rhythm, No Edema, No JVD Capillary Refill: Less Than 3 Seconds Peripheral Pulses: 2+ Dorsalis Pedis (R), 2+ Left Dors-Pedis (L), 2+ Radial Pulses (R), 2+ Radial Pulses (L) Gastrointestinal: non tender, soft; No guarding, No rebound; other (Midline incision clean and dry. Drain is serosanginous. Non-erythematous.) Extremity: Normal Inspection, Non Tender, Other (Left arm PICC line ) Neurologic/Psychiatric: Alert, Oriented x3, No Motor/Sensory Deficits, Normal Mood/Affect Skin: Normal Color, Warm/Dry Lymphatic: No Adenopathy Results Lab Laboratory Tests 09/03/21 04:25 09/04/21 04:00 Assessment/Plan Assessment/Plan (Tele-ICU Physician , consultation) Available chart/ vitals / labs / Images reviewed H&P is from ER notes Patient's information available about PMH, Shx, Fhx allergy reviewed in EMR. ROS as per chart and RN report Now in ICU, hemodynamically stable Video assessment done using teleICU camera, on arrival to ICU , and now post op Discussed with RN. Consultants: SX Hospital course: 09/02 - trnsferred to ICU from other facility with small pneumoperitoneum with a moderate amount of intraperitoneal free fluid. 09/02- s/p SX A/P Small pneumoperitoneum with a moderate amount of intraperitoneal free fluid. - expl lap scheduled - converted to open with gastric biopsy and modified Gra ham patch for a gastric perforation 09/02 - extubated post op , on RA - ABX - zosyn IV - hydration - pain conrol - PO to start when ok with sx- STARTING TPN now - very libale blood sugar - will check Hb a1c , add accuchecks and ISS anemia -post op Tox screen positive for metamphet . Amphetamins nd cannabioids Plans in collaboration with bedside consultants and IM MDs. Discussed with RN to reach out if any questions or concerns A total of 20 minutes of critical care time was devoted to this patient today, required to treat and/or prevent further deterioration of critical care condition ( as above ) . MARBIN RODRIGUEZ MD Sep 04, 2021 10:13
[2021-09-04] MEDS: SODIUM PHOSPHATE INJ 7.5 MM in NS (IVPB) 50 ML INJ SCH ×6 (11:02→15:12)
[2021-09-04] MEDS: inSUlin ASPART (NovoLOG) 1 UNIT/0.01 ML (CHARGE PER UNIT) SC SCH ×2 (11:51→16:56)
[2021-09-04] MEDS: PANTOPRAZOLE INJECTION 200 MG in NS (IVPB) 100 ML IV SCH (14:11)
[2021-09-04 16:09] LABS: POTASSIUM 3.4 MMOL/L (3.6-5.0)
[2021-09-04 16:10] LABS: CALCIUM 7.8 MG/DL (8.5-10.1)
[2021-09-04 16:14] LABS: PHOSPHORUS 3.7 MG/DL (2.3-4.7)
[2021-09-04 16:15] LABS: CREATININE SERUM 0.6 MG/DL (0.60-1.30)
[2021-09-04 16:17] LABS: MAGNESIUM 1.8 MG/DL (1.6-2.4)
[2021-09-04] MEDS ORDERED: SODIUM PHOSPHATE IV SCH ×9 (17:00)
[2021-09-04] MEDS ORDERED: SODIUM ACETATE IV SCH ×9 (17:00)
[2021-09-04] MEDS ORDERED: POTASSIUM CHLORIDE IV SCH ×9 (17:00)
[2021-09-04] MEDS ORDERED: [UNRECOGNIZED DRUG - OTHER] IV SCH ×9 (17:00)
[2021-09-04] MEDS: 1/2 NS IV SOLUTION 1,000 ML IV SCH (18:02)
[2021-09-05] MEDS: inSUlin ASPART (NovoLOG) 1 UNIT/0.01 ML (CHARGE PER UNIT) SC SCH ×5 (01:15→21:00)
[2021-09-05] MEDS: morphine INJ 4 MG/ML 1 ML (VIAL/SYRINGE) IVP PRN ×9 (01:46→23:43)
[2021-09-05] MEDS: MUPIROCIN 2% OINT 22 GM (BACTROBAN) TUBE NSEACH SCH ×2 (03:30→10:13)
[2021-09-05] MEDS: PIPERACILLIN/TAZO 4.5 GM/NS 100 ML IV SCH ×6 (04:31→20:57)
[2021-09-05 05:07] LABS: BASOPHILS % (AUTO) 0 % (0-10); EOSINOPHILS # (AUTO) 0.1 10^3/uL (0.0-0.3); EOSINOPHILS % (AUTO) 2 % (0-10); HEMATOCRIT 34 % (35-52); LYMPHOCYTES # (AUTO) 1.1 10^3/uL (1.0-4.0); LYMPHOCYTES % (AUTO) 18 % (12-44); MEAN CORPUSCULAR HEMOGLOBIN 30 pg (25-34); MEAN CORPUSCULAR HGB CONC 33 g/dL (32-36); MEAN CORPUSCULAR VOLUME 93 fL (80-99); MEAN PLATELET VOLUME 9.1 fL (9.0-12.2); MONOCYTES # (AUTO) 0.5 10^3/uL (0.0-1.0); MONOCYTES % (AUTO) 8 % (0-12); NEUTROPHILS # (AUTO) 4.5 10^3/uL (1.8-7.8); NEUTROPHILS % (AUTO) 71 % (42-75); PLATELET COUNT 374 10^3/uL (130-400); WHITE BLOOD COUNT 6.3 10^3/uL (4.3-11.0)
[2021-09-05 05:33] LABS: ALBUMIN 2.8 GM/DL (3.2-4.5); POTASSIUM 3.6 MMOL/L (3.6-5.0)
[2021-09-05 05:36] LABS: TOTAL PROTEIN 5.6 GM/DL (6.4-8.2)
[2021-09-05 05:37] LABS: BILIRUBIN,TOTAL 0.4 MG/DL (0.1-1.0)
[2021-09-05 05:39] LABS: CREATININE SERUM 0.62 MG/DL (0.60-1.30); PHOSPHORUS 2.9 MG/DL (2.3-4.7)
[2021-09-05 05:42] LABS: MAGNESIUM 1.8 MG/DL (1.6-2.4)
--- NOTE | 2021-09-05 07:06 | Progress Note - Surgery ---
MARTELLJACKELINE 09/05/21 0706: Subjective Time Seen by a Provider: 06:45 Subjective/Events-last exam Patient seen at bedside this morning. She is states she still has pain 8/10 but resting comfortably. She has flatus but no BM. She has no nausea or emesis. She has a JACQUELINE drain which is draining serosanguinous fluid. NG tube and Willams in place. She is ambulating well. Review of Systems General: No Chills, No Fatigue HEENT: No Head Aches, No Visual Changes Pulmonary: No Dyspnea, No Pleuritic Chest Pain Cardiovascular: No: Chest Pain, Edema Gastrointestinal: Abdominal Pain; No: Nausea, Vomiting, Diarrhea Genitourinary: No Dysuria, No Frequency Musculoskeletal: No: arm pain, leg pain Neurological: No: Weakness, Numbness Objective Exam Vital Signs Date Time Temp Pulse Resp B/P (MAP) Pulse Ox O2 Delivery O2 Flow Rate FiO2 09/05/21 00:00 Room Air 09/04/21 22:00 36.4 67 18 143/91 98 Room Air 09/04/21 20:20 Room Air 09/04/21 20:00 36.8 71 20 148/86 98 Room Air 09/04/21 18:28 35.9 84 20 141/88 99 Room Air 09/04/21 18:27 70 14 146/95 99 Room Air 09/04/21 16:24 Room Air 09/04/21 16:00 70 14 146/95 99 Room Air 09/04/21 15:58 36.8 09/04/21 12:53 78 09/04/21 12:00 78 16 140/93 99 Room Air 09/04/21 11:55 Room Air 09/04/21 10:00 82 22 132/82 98 Room Air 09/04/21 09:00 90 19 131/75 96 Room Air 09/04/21 08:55 97 Room Air 09/04/21 08:02 Room Air 09/04/21 08:00 81 26 132/97 95 Room Air 09/04/21 07:50 36.3 09/04/21 07:00 76 09/04/21 07:00 82 17 133/92 98 Room Air I & O 09/05/21 06:59 Intake Total 915 ml Output Total 1910 ml Balance -995 ml Capillary Refill : Less Than 3 Seconds General Appearance: No Apparent Distress, WD/WN HEENT: PERRL/EOMI, Normal ENT Inspection Neck: Normal Inspection, Non Tender Respiratory: Chest Non Tender, Lungs Clear, Normal Breath Sounds, No Accessory Muscle Use, No Respiratory Distress Cardiovascular: Regular Rate, Rhythm, No Edema, No JVD Peripheral Pulses: 2+ Dorsalis Pedis (R), 2+ Left Dors-Pedis (L), 2+ Radial Pulses (R), 2+ Radial Pulses (L) Gastrointestinal: soft, tenderness (Incisional which is improved), other (Midline incision clean and dry. Drain is serosanginous. Non-erythematous.) Extremity: Normal Inspection, Non Tender, Other (Left arm PICC line ) Neurologic/Psychiatric: Alert, Oriented x3, Normal Mood/Affect Skin: Normal Color, Warm/Dry Lymphatic: No Adenopathy Results Lab Laboratory Tests 09/04/21 11:45: Glucometer 70 09/04/21 15:49: Sodium Level 138, Potassium Level 3.4L, Chloride Level 102, Carbon Dioxide Level 25, Anion Gap 11, Blood Urea Nitrogen 6L, Creatinine 0.60, Estimat Glomerular Filtration Rate 109, BUN/Creatinine Ratio 10, Glucose Level 80, Calcium Level 7.8L, Phosphorus Level 3.7, Magnesium Level 1.8, Triglycerides Level 70 09/04/21 16:51: Glucometer 73 09/05/21 00:35: Glucometer 106 09/05/21 04:51: White Blood Count 6.3, Red Blood Count 3.63L, Hemoglobin 11.0L, Hematocrit 34L, Mean Corpuscular Volume 93, Mean Corpuscular Hemoglobin 30, Mean Corpuscular Hemoglobin Concent 33, Red Cell Distribution Width 13.9, Platelet Count 374, Mean Platelet Volume 9.1, Immature Granulocyte % (Auto) 0, Neutrophils (%) (Auto) 71, Lymphocytes (%) (Auto) 18, Monocytes (%) (Auto) 8, Eosinophils (%) (Auto) 2, Basophils (%) (Auto) 0, Neutrophils # (Auto) 4.5, Lymphocytes # (Auto) 1.1, Monocytes # (Auto) 0.5, Eosinophils # (Auto) 0.1, Basophils # (Auto) 0.0, Immature Granulocyte # (Auto) 0.0, Sodium Level 137, Potassium Level 3.6, Chloride Level 103, Carbon Dioxide Level 24, Anion Gap 10, Blood Urea Nitrogen 9, Creatinine 0.62, Estimat Glomerular Filtration Rate 105, BUN/Creatinine Ratio 15, Glucose Level 106H, Calcium Level 8.0L, Corrected Calcium 9.0, Phosphorus Level 2.9, Magnesium Level 1.8, Total Bilirubin 0.4, Aspartate Amino Transf (AST/SGOT) 10, Alanine Aminotransferase (ALT/SGPT) 8, Alkaline Phosphatase 48, Total Protein 5.6L, Albumin 2.8L Microbiology 09/02/21 Blood Culture - Preliminary, Resulted No growth 09/02/21 MRSA Screen - Final, Complete Meds Item Value Date Time Sodium Acetate 60 1,412.1 ml @ 58 mls/hr 09/04/21 1700 meq/Potassium 1700/IV 09/04/21 1803 Chloride 95 meq/ Sodium Phosphate 30 mm/Calcium Gluconate 4.65 meq/Magnesium Sulfate 1.8 gm/ Multivitamins 10 ml/Zinc/Copper/ Manganese/ Selenium 1 ml/ Dextrose/Amino Acids Sodium Chloride 1,000 ml @ 30 mls/hr 09/04/21 1645 Insulin Aspart INSULIN SLIDING SCALE ... 09/04/21 1100 (NovoLOG (CHARGE ACHS/SC PER UNIT)) Albuterol/ 3 ml 09/03/21 2045 Ipratropium RTQ4HR PRN/INH (Duoneb Inhalation Solution) Potassium 1,000 ml @ 70 mls/hr 09/03/21 1845 Chloride/Dextrose/ [id number] Sod Cl Hydralazine HCl 10 mg 09/03/21 1315 (Apresoline Q4HR PRN/IV 09/04/21 0210 Injection) Mupirocin USE CLEAN SWABS PLACE ... 09/03/21 0900 (Bactroban BID/NSEACH Ointment) Fluconazole/ 50 ml @ 100 mls/hr 09/03/21 0900 Sodium Chloride/ DAILY/IV 09/04/21 0845 Miscellaneous Pantoprazole 200 100 ml @ 4 mls/hr 09/02/21 1330 mg/Sodium Chloride Q24H/IV 09/04/21 1411 Piperacillin Sod/ 120 ml @ 30 mls/hr 09/02/21 1200 Tazobactam Sod Q8H/IV 09/05/21 0431 4.5 gm/Sodium Chloride Ondansetron HCl 4 mg 09/02/21 1000 (Zofran Q6H PRN/IVP Injection (Sdv)) Morphine Sulfate 2 mg 09/02/21 0930 (morphine Q2H PRN/IVP 09/05/21 0434 INJECTION) Assessment/Plan Assessment/Plan Assessment/Plan Diffuse abdominal pain Pneumoperitoneum post-op day 3 for diagnostic laparoscopy converted to open with gastric biopsy and modified Royce patch for a gastric perforation Marijuana use Amphetamine use Opioid use Continue patient on Zosyn and fluconazole Continue pain managment Continue sequential compression devices Continue IV fluids Continue NG tube Continue N.P.O. Continue incentive spirometer Continue TPN Accurate i/o Consider PT/OT today Consider removing Willams catheter today CUAUHTEMOC RICHARDSON DO 09/05/21 1114: Subjective Subjective/Events-last exam Feeling better. Pain still present. No bowel function. On tpn. Denies n/v fever sweats chills shortness of breath or chest pain. NG tube. NPO. Objective Exam General Appearance: No Apparent Distress, WD/WN HEENT: PERRL/EOMI, Normal ENT Inspection Neck: Normal Inspection, Non Tender Respiratory: Chest Non Tender, No Accessory Muscle Use, No Respiratory Distress Cardiovascular: Regular Rate, Rhythm, No JVD Gastrointestinal: soft, tenderness (Incisional which is improved), other (Midline incision clean and dry. Drain is serous. Non-erythematous.) Extremity: Normal Inspection, Non Tender, Other (Left arm PICC line ) Neurologic/Psychiatric: Alert, Oriented x3, Normal Mood/Affect Skin: Normal Color, Warm/Dry Lymphatic: No Adenopathy Assessment/Plan Assessment/Plan Assessment/Plan Diffuse abdominal pain Pneumoperitoneum post-op day 3 for diagnostic laparoscopy converted to open with gastric biopsy and modified Royce patch for a gastric perforation Marijuana use Amphetamine use Opioid use Continue patient on Zosyn and fluconazole Continue pain managment Continue sequential compression devices Continue IV fluids Continue NG tube Continue N.P.O. Continue incentive spirometer Continue TPN Accurate i/o Consider PT Dc willams Start lovenox Supervisory-Addendum Brief Verification & Attestation Participated in pt care: history, MDM, physical Personally performed: exam, history, MDM, supervision of care Care discussed with: Medical Student Procedures: n/a Results interpretation: Verified all documentation Verification and Attestation of Medical Student E/M Service A medical student performed and documented this service in my presence. I reviewed and verified all information documented by the medical student and made modifications to such information, when appropriate. I personally performed the physical exam and medical decision making. Cuauhtemoc Richardson, Sep 05, 2021,11:14 JACKELINE MOURA Sep 05, 2021 07:06 CUAUHTEMOC RICHARDSON DO Sep 05, 2021 11:14
[2021-09-05 08:26] VITALS: BP 138/87
[2021-09-05] MEDS: FLUCONAZOLE 200 MG/100 ML 50 ML, EMPTY IV BAG (PVC) 1 EA IV SCH ×2 (09:29)
[2021-09-05] MEDS: ENOXAPARIN 30 MG/0.3 ML (LOVENOX) SYR SC SCH (11:44)
[2021-09-05 16:23] VITALS: BP 151/97
[2021-09-05] MEDS: 1/2 NS IV SOLUTION 1,000 ML IV SCH (16:40)
[2021-09-05] MEDS: [UNRECOGNIZED DRUG - OTHER] IV SCH ×11 (16:46)
[2021-09-05] MEDS: SODIUM CHLORIDE IV SCH ×11 (16:46)
[2021-09-05] MEDS: SODIUM ACETATE IV SCH ×11 (16:46)
[2021-09-05] MEDS: PANTOPRAZOLE 40 MG (PROTONIX) VIAL IV SCH (20:57)
[2021-09-05 23:59] VITALS: BP 131/80
[2021-09-06] MEDS: inSUlin ASPART (NovoLOG) 1 UNIT/0.01 ML (CHARGE PER UNIT) SC SCH ×4 (00:35→16:12)
[2021-09-06] MEDS: morphine INJ 4 MG/ML 1 ML (VIAL/SYRINGE) IVP PRN ×8 (02:01→21:59)
[2021-09-06 03:40] VITALS: BP 131/80
[2021-09-06] MEDS: PIPERACILLIN/TAZO 4.5 GM/NS 100 ML IV SCH ×6 (04:34→19:53)
[2021-09-06] MEDS: 1/2 NS IV SOLUTION 1,000 ML IV SCH (04:39)
[2021-09-06 04:42] VITALS: BP 135/82
[2021-09-06 05:27] LABS: ALBUMIN 2.8 GM/DL (3.2-4.5); POTASSIUM 4.1 MMOL/L (3.6-5.0)
[2021-09-06 05:28] LABS: CALCIUM 8.4 MG/DL (8.5-10.1)
[2021-09-06 05:29] LABS: TOTAL PROTEIN 5.8 GM/DL (6.4-8.2)
[2021-09-06 05:31] LABS: BILIRUBIN,TOTAL 0.2 MG/DL (0.1-1.0)
[2021-09-06 05:33] LABS: CREATININE SERUM 0.6 MG/DL (0.60-1.30); PHOSPHORUS 3.7 MG/DL (2.3-4.7)
[2021-09-06 05:36] LABS: MAGNESIUM 1.8 MG/DL (1.6-2.4)
--- NOTE | 2021-09-06 06:57 | Progress Note - Surgery ---
ALEX MOURAN 09/06/21 0657: Subjective Time Seen by a Provider: 06:30 Subjective/Events-last exam Patient seen at bedside this morning. She states her pain is significantly improved. She has flatus but no BM. She has no nausea or emesis. She has a JACQUELINE drain which is draining serous fluid. NG tube in place. She is ambulating well. She is using the incentive spirometer which she mentions she does not enjoy. Review of Systems General: No Chills, No Fatigue HEENT: No Head Aches, No Visual Changes Pulmonary: No Dyspnea, No Pleuritic Chest Pain Cardiovascular: No: Chest Pain, Edema Gastrointestinal: No: Nausea, Vomiting, Abdominal Pain, Diarrhea Genitourinary: No Dysuria, No Frequency Musculoskeletal: No: arm pain, leg pain Neurological: No: Weakness, Numbness Objective Exam Vital Signs Date Time Temp Pulse Resp B/P (MAP) Pulse Ox O2 Delivery O2 Flow Rate FiO2 09/06/21 04:42 36.9 84 20 135/82 (99) 96 Room Air 09/06/21 03:40 36.2 72 97 21 09/05/21 23:59 36.2 72 16 131/80 (97) 97 Room Air 09/05/21 20:00 Room Air 09/05/21 18:24 97 Room Air 09/05/21 16:23 36.9 79 18 151/97 (115) 97 Room Air 09/05/21 15:11 Room Air 09/05/21 12:00 Room Air 09/05/21 08:26 36.3 78 16 138/87 (104) 96 Room Air 09/05/21 08:14 Room Air I & O 09/06/21 07:00 Intake Total 1655 ml Output Total 1580 ml Balance 75 ml Capillary Refill : Less Than 3 Seconds General Appearance: No Apparent Distress, WD/WN HEENT: PERRL/EOMI, Normal ENT Inspection Neck: Normal Inspection, Non Tender Respiratory: Chest Non Tender, Normal Breath Sounds, No Accessory Muscle Use, No Respiratory Distress Cardiovascular: Regular Rate, Rhythm, No Edema, No JVD Peripheral Pulses: 2+ Dorsalis Pedis (R), 2+ Left Dors-Pedis (L), 2+ Radial Pulses (R), 2+ Radial Pulses (L) Gastrointestinal: soft, tenderness (Incisional which is improved), other (Midline incision clean and dry. Drain is serous. Non-erythematous.) Extremity: Normal Inspection, Non Tender, Other (Left arm PICC line ) Neurologic/Psychiatric: Alert, Oriented x3, Normal Mood/Affect Skin: Normal Color, Warm/Dry Lymphatic: No Adenopathy Results Lab Laboratory Tests 09/05/21 11:10: Glucometer 108 09/05/21 16:40: Glucometer 109 09/05/21 20:49: Glucometer 105 09/06/21 00:04: Glucometer 118H 09/06/21 04:45: Sodium Level 137, Potassium Level 4.1, Chloride Level 104, Carbon Dioxide Level 23, Anion Gap 10, Blood Urea Nitrogen 11, Creatinine 0.60, Estimat Glomerular Filtration Rate 109, BUN/Creatinine Ratio 18, Glucose Level 102, Calcium Level 8.4L, Corrected Calcium 9.4, Phosphorus Level 3.7, Magnesium Level 1.8, Total Bilirubin 0.2, Aspartate Amino Transf (AST/SGOT) 10, Alanine Aminotransferase (ALT/SGPT) 7, Alkaline Phosphatase 51, Total Protein 5.8L, Albumin 2.8L 09/06/21 05:26: Glucometer 99 Microbiology 09/02/21 Blood Culture - Preliminary, Resulted No growth 09/02/21 MRSA Screen - Final, Complete Meds Item Value Date Time Insulin Aspart INSULIN SLIDING SCALE ... 09/06/21 0000 (NovoLOG (CHARGE Q6HR/SC PER UNIT)) Pantoprazole 40 mg 09/05/21 2100 (Protonix BID/IV 09/05/212056 Injection) Sodium Chloride 1,761.6833 ml @ 73 mls/hr 09/05/21 1700 15 meq/Sodium 1700/IV 09/05/21 1646 Acetate 60 meq/ Potassium Chloride 80 meq/ Sodium Phosphate 40 mm/Calcium Gluconate 4.65 meq/Magnesium Sulfate 1.8 gm/ Multivitamins 10 ml/Zinc/Copper/ Manganese/ Selenium 1 ml/ Dextrose/Amino Acids/Fat Emulsion Intravenous Enoxaparin Sodium 30 mg 09/05/21 1115 (Lovenox Q24H/SC 09/05/21 1144 Injection) Sodium Chloride 1,000 ml @ 30 mls/hr 09/04/21 1645 Albuterol/ 3 ml 09/03/21 2045 Ipratropium RTQ4HR PRN/INH (Duoneb Inhalation Solution) Hydralazine HCl 10 mg 09/03/21 1315 (Apresoline Q4HR PRN/IV 09/04/21 0210 Injection) Fluconazole/ 50 ml @ 100 mls/hr 09/03/21 0900 Sodium Chloride/ DAILY/IV 09/05/21 0929 Miscellaneous Piperacillin Sod/ 120 ml @ 30 mls/hr 09/02/21 1200 Tazobactam Sod Q8H/IV 09/06/21 0434 4.5 gm/Sodium Chloride Ondansetron HCl 4 mg 09/02/21 1000 (Zofran Q6H PRN/IVP Injection (Sdv)) Morphine Sulfate 2 mg 09/02/21 0930 (morphine Q2H PRN/IVP 09/06/21 0435 INJECTION) Assessment/Plan Assessment/Plan Assessment/Plan Diffuse abdominal pain Pneumoperitoneum post-op day 4 for diagnostic laparoscopy converted to open with gastric biopsy and modified Royce patch for a gastric perforation Marijuana use Amphetamine use Opioid use Continue patient on Zosyn and fluconazole Continue pain managment Continue sequential compression devices Continue IV fluids Continue NG tube Continue N.P.O. Continue incentive spirometer Continue TPN Continue Lovenox Accurate i/o Consider PT CUAUHTEMOC STAFFORD DO 09/06/211947: Subjective Subjective/Events-last exam Patient feeling better today. She has serous output from JACQUELINE drain. Patient has NG tube in place. She continues to feel better. Pain controlled. Denies nausea vomiting fever sweats chills shortness of breath or chest pain. Using incentive spirometer. Objective Exam General Appearance: No Apparent Distress, WD/WN HEENT: PERRL/EOMI, Normal ENT Inspection Neck: Normal Inspection, Non Tender Respiratory: Chest Non Tender, No Accessory Muscle Use, No Respiratory Distress Cardiovascular: Regular Rate, Rhythm, No JVD Gastrointestinal: soft, tenderness (Incisional which is improved), other (JACQUELINE drain serous) Extremity: Normal Inspection, Non Tender, Other (Left arm PICC line ) Neurologic/Psychiatric: Alert, Oriented x3, Normal Mood/Affect Skin: Normal Color, Warm/Dry Lymphatic: No Adenopathy Assessment/Plan Assessment/Plan Assessment/Plan Diffuse abdominal pain Pneumoperitoneum post-op day 4 for diagnostic laparoscopy converted to open with gastric biopsy and modified Royce patch for a gastric perforation Marijuana use Amphetamine use Opioid use Continue patient on Zosyn and fluconazole Continue pain managment Continue sequential compression devices Continue IV fluids Continue NG tube Continue N.P.O. Continue incentive spirometer Continue TPN Continue Lovenox Evaluate tomorrow with gastrograffin study for leak. Supervisory-Addendum Brief Verification & Attestation Participated in pt care: history, MDM, physical Personally performed: exam, history, MDM, supervision of care Care discussed with: Medical Student Procedures: n/a Results interpretation: Verified all documentation Verification and Attestation of Medical Student E/M Service A medical student performed and documented this service in my presence. I reviewed and verified all information documented by the medical student and made modifications to such information, when appropriate. I personally performed the physical exam and medical decision making. Cuauhtemoc Stafford, Sep 06, 2021,19:47 JACKELINE MOURA Sep 06, 2021 06:57 CUAUHTEMOC STAFFORD DO Sep 06, 2021 19:48
[2021-09-06] MEDS: ENOXAPARIN 30 MG/0.3 ML (LOVENOX) SYR SC SCH (07:51)
[2021-09-06] MEDS: PANTOPRAZOLE 40 MG (PROTONIX) VIAL IV SCH ×2 (07:51→19:53)
[2021-09-06] MEDS: FLUCONAZOLE 200 MG/100 ML 50 ML, EMPTY IV BAG (PVC) 1 EA IV SCH ×2 (07:51)
[2021-09-06 08:03] VITALS: BP 141/82
[2021-09-06 11:28] VITALS: BP 130/80
[2021-09-06 15:56] VITALS: BP 136/77
[2021-09-06] MEDS: [UNRECOGNIZED DRUG - OTHER] IV SCH ×11 (16:56)
[2021-09-06] MEDS: SODIUM ACETATE IV SCH ×11 (16:56)
[2021-09-06] MEDS: SODIUM CHLORIDE IV SCH ×11 (16:56)
[2021-09-06 19:55] VITALS: BP 149/77
[2021-09-07 00:35] VITALS: BP 125/75
[2021-09-07] MEDS: morphine INJ 4 MG/ML 1 ML (VIAL/SYRINGE) IVP PRN ×9 (00:38→22:31)
[2021-09-07] MEDS: inSUlin ASPART (NovoLOG) 1 UNIT/0.01 ML (CHARGE PER UNIT) SC SCH ×4 (00:49→16:39)
[2021-09-07] MEDS: PIPERACILLIN/TAZO 4.5 GM/NS 100 ML IV SCH ×6 (04:10→20:16)
[2021-09-07 04:16] VITALS: BP 158/86
[2021-09-07 04:58] LABS: POTASSIUM 4.1 MMOL/L (3.6-5.0)
[2021-09-07 04:59] LABS: CALCIUM 8.6 MG/DL (8.5-10.1)
[2021-09-07 05:00] LABS: TOTAL PROTEIN 6.3 GM/DL (6.4-8.2)
[2021-09-07 05:02] LABS: BILIRUBIN,TOTAL 0.3 MG/DL (0.1-1.0)
[2021-09-07 05:04] LABS: CREATININE SERUM 0.65 MG/DL (0.60-1.30); PHOSPHORUS 4.3 MG/DL (2.3-4.7)
[2021-09-07 05:07] LABS: MAGNESIUM 1.8 MG/DL (1.6-2.4)
[2021-09-07 07:35] VITALS: BP 132/82
[2021-09-07] MEDS: PANTOPRAZOLE 40 MG (PROTONIX) VIAL IV SCH ×2 (07:43→20:10)
[2021-09-07] MEDS: FLUCONAZOLE 200 MG/100 ML 50 ML, EMPTY IV BAG (PVC) 1 EA IV SCH ×2 (07:43)
[2021-09-07] MEDS: ENOXAPARIN 30 MG/0.3 ML (LOVENOX) SYR SC SCH (07:45)
--- NOTE | 2021-09-07 08:15 | Progress Note - Surgery ---
KIMBERLY BENITO 09/07/21 0815: Subjective Date Seen by a Provider: Sep 07, 2021 Time Seen by a Provider: 07:55 Subjective/Events-last exam Patient laying in bed, tired and fatigued. Patient had mild abdominal discomfort o/n. Patient did not have bm. Patient has NG tube in place, states mild ir ritation from tube. Patient denies nausea and vomiting, fevers, chills, diaphoresis, shortness of breath, chest pain, palpitations, dizziness and lightheadedness, numbness and paresthesia, and vision changes. Review of Systems General: No Chills, No Night Sweats HEENT: No Head Aches, No Visual Changes Pulmonary: No Dyspnea, No Cough Cardiovascular: No: Chest Pain, Palpitations Gastrointestinal: Abdominal Pain (mild diffuse discomfort.); No: Nausea, Vomiting Genitourinary: No Dysuria, No Frequency Musculoskeletal: No: neck pain, shoulder pain Neurological: No: Weakness, Numbness Objective Exam Vital Signs Date Time Temp Pulse Resp B/P (MAP) Pulse Ox O2 Delivery O2 Flow Rate FiO2 09/07/21 07:50 Room Air 09/07/21 07:35 36.9 62 16 132/82 (99) 97 Room Air 09/07/21 04:16 36.8 67 20 158/86 (110) 97 Room Air 09/07/21 00:35 36.7 66 18 125/75 (92) 95 Room Air 09/06/21 20:00 Room Air 09/06/21 19:55 36.5 69 18 149/77 (101) 98 Room Air 09/06/21 15:56 36.4 68 19 136/77 (96) 98 Room Air 09/06/21 11:28 36.0 66 18 130/80 (97) 94 Room Air I & O 09/07/21 07:00 Intake Total 1400 ml Output Total 750 ml Balance 650 ml Capillary Refill : Less Than 3 Seconds General Appearance: No Apparent Distress, Thin HEENT: PERRL/EOMI, Pharynx Normal, Moist Mucous Membranes; No Scleral Icterus (L), No Scleral Icterus (R) Neck: Full Range of Motion, Non Tender, Supple Respiratory: Chest Non Tender, Lungs Clear, Normal Breath Sounds, No Accessory Muscle Use, No Respiratory Distress Cardiovascular: Regular Rate, Rhythm, No JVD, No Murmur Peripheral Pulses: 2+ Dorsalis Pedis (R), 2+ Left Dors-Pedis (L), 2+ Radial Pulses (R), 2+ Radial Pulses (L) Gastrointestinal: soft, no organomegaly, no pulsatile mass; No distended, No guarding, No rebound; tenderness (Diffuse mild tenderness on palpation, sites healing well, mild reddness, some mild discharge. ), other (JACQUELINE drain serous) Extremity: Normal Capillary Refill, Normal Range of Motion, Non Tender, No Calf Tenderness, Other (Left arm PICC line ) Neurologic/Psychiatric: Alert, Oriented x3, No Motor/Sensory Deficits, Normal Mood/Affect Skin: Normal Color, Warm/Dry Lymphatic: No Adenopathy (cervical, axillary) Results Lab Laboratory Tests 09/06/21 11:30: Glucometer 110 09/06/21 18:10: Glucometer 84 09/07/21 00:41: Glucometer 108 09/07/21 04:15: Sodium Level 137, Potassium Level 4.1, Chloride Level 103, Carbon Dioxide Level 23, Anion Gap 11, Blood Urea Nitrogen 12, Creatinine 0.65, Estimat Glomerular Filtration Rate 99, BUN/Creatinine Ratio 18, Glucose Level 98, Calcium Level 8.6, Corrected Calcium 9.4, Phosphorus Level 4.3, Magnesium Level 1.8, Total Bilirubin 0.3, Aspartate Amino Transf (AST/SGOT) 15, Alanine Aminotransferase (ALT/SGPT) 10, Alkaline Phosphatase 55, Total Protein 6.3L, Albumin 3.0L Microbiology 09/02/21 Blood Culture - Preliminary, Resulted No growth 09/02/21 MRSA Screen - Final, Complete Meds Item Value Date Time Sodium Chloride 1,760.0167 ml @ 73 mls/hr 09/07/21 1700 15 meq/Sodium 1700/IV Acetate 60 meq/ Potassium Chloride 80 meq/ Sodium Phosphate 35 mm/Calcium Gluconate 4.65 meq/Magnesium Sulfate 1.8 gm/ Multivitamins 10 ml/Zinc/Copper/ Manganese/ Selenium 1 ml/ Dextrose/Amino Acids/Fat Emulsion Intravenous Insulin Aspart INSULIN SLIDING SCALE ... 09/06/21 0000 (NovoLOG (CHARGE Q6HR/SC PER UNIT)) Pantoprazole 40 mg 09/05/21 2100 (Protonix BID/IV 09/07/21 0743 Injection) Sodium Chloride 1,761.6833 ml @ 73 mls/hr 09/05/21 1700 15 meq/Sodium 1700/IV 09/06/21 1656 Acetate 60 meq/ Potassium Chloride 80 meq/ Sodium Phosphate 40 mm/Calcium Gluconate 4.65 meq/Magnesium Sulfate 1.8 gm/ Multivitamins 10 ml/Zinc/Copper/ Manganese/ Selenium 1 ml/ Dextrose/Amino Acids/Fat Emulsion Intravenous Enoxaparin Sodium 30 mg 09/05/21 1115 (Lovenox Q24H/SC 09/07/21 0745 Injection) Sodium Chloride 1,000 ml @ 30 mls/hr 09/04/21 1645 Albuterol/ 3 ml 09/03/21 2045 Ipratropium RTQ4HR PRN/INH (Duoneb Inhalation Solution) Hydralazine HCl 10 mg 09/03/21 1315 (Apresoline Q4HR PRN/IV 09/04/21 0210 Injection) Fluconazole/ 50 ml @ 100 mls/hr 09/03/21 0900 Sodium Chloride/ DAILY/IV 09/07/21 0743 Miscellaneous Piperacillin Sod/ 120 ml @ 30 mls/hr 09/02/21 1200 Tazobactam Sod Q8H/IV 09/07/21 0410 4.5 gm/Sodium Chloride Ondansetron HCl 4 mg 09/02/21 1000 (Zofran Q6H PRN/IVP Injection (Sdv)) Morphine Sulfate 2 mg 09/02/21 0930 (morphine Q2H PRN/IVP 09/07/21 0623 INJECTION) Radiology No new imaging. Assessment/Plan Assessment/Plan Assessment/Plan Diffuse abdominal pain Pneumoperitoneum post-op day 4 for diagnostic laparoscopy converted to open with gastric biopsy and modified Royce patch for a gastric perforation Marijuana use Amphetamine use Opioid use Continue patient on Zosyn and fluconazole - patient received Zosyn and fluconazole this morning. Continue pain management - patient received morphine this morning. Continue sequential compression devices - patient also on lovenox. Continue IV fluids Continue NG tube - removed around 300mL as of this morning. Continue NPO Continue incentive spirometer use Continue TPN Continue Lovenox Plan for patient to receive Gastrograffin study today. JERED ALFORD DO 09/07/21 1309: Subjective Time Seen by a Provider: 10:50 Subjective/Events-last exam Pt seen and examined, had coughed up some stuff "they gave me to much contrast in my NGT for study". She would like to try some liquids. Review of Systems General: No Chills, No Night Sweats Pulmonary: No Dyspnea, No Cough Cardiovascular: No: Chest Pain, Palpitations Gastrointestinal: Nausea, Vomiting, Abdominal Pain (mild diffuse discomfort.) Objective Exam General Appearance: Mild Distress, Thin HEENT: Moist Mucous Membranes, Other (NGT in place) Respiratory: Lungs Clear, Normal Breath Sounds, No Accessory Muscle Use, No Respiratory Distress Cardiovascular: Regular Rate, Rhythm, No Murmur Gastrointestinal: soft, no organomegaly, tenderness (Diffuse mild tenderness on palpation, sites healing well, mild reddness, some mild discharge. ), other (JACQUELINE drain serous) Assessment/Plan Assessment/Plan Assessment/Plan S/P Modified Royce Patch for perforated Gastric Ulcer Hx of substance abuse I looked at the UGI to make sure no leak from perforation (no radiology reading yet) and I do not see a leak. Will start her on sips of clears and clamp NGT. Continue IV fluids, pain control, encourage IS use and ambulation. Will consider stopping TPN if she tolerates clears and it is moving through. Supervisory-Addendum Brief Verification & Attestation Participated in pt care: history, MDM, physical Personally performed: exam, history, MDM, supervision of care Care discussed with: Medical Student Procedures: n/a Verification and Attestation of Medical Student E/M Service A medical student performed and documented this service. I then reviewed and verified all information documented by the medical student and made modifications to such information, when appropriate. I personally performed a physical exam, medical decision making and then discussed any differences between the notes and made revisions as necessary to create one note. Jered Alford , 09/07/21 , 13:09 KIMBERLY BENITO Sep 07, 2021 08:15 JERED ALFORD DO Sep 07, 2021 13:09
[2021-09-07] MEDS ORDERED: DIATRIZOATE MEGLUM/SODIUM 37% 120 ML (GASTROGRAFIN) NG ONE ×2 (11:00)
--- NOTE | 2021-09-07 14:08 | Diagnostic Imaging Report ---
CLINICAL INDICATIONS: Patient with gastric perforation, status post Royce patch. Evaluate for leakage from the pylorus/stomach region. EXAM: Modified small bowel follow-through study with focus on the stomach and duodenum. Multiple standing and supine overhead imaging is obtained in short intervals. Feeding tube is in place. Half-concentration of Gastrografin in water was administered. A Total of 480 mL was given. COMPARISON: X-ray of the abdomen dated 08/14/2020. CT scan of the abdomen and pelvis with contrast dated 09/02/2021. FINDINGS: Initial gyroscopic instrument mechanic image shows no evidence of free air. There are multiple air-distended loops of small bowel noted in the colon. There is air in the rectum. Barium was administered through the nasogastric tube. There is no obstruction of flow of contrast noted from the stomach and into the small bowel/jejunum. Midline skin romeo are seen. There is no evidence of contrast leakage seen on this exam. There are multiple drains overlying the abdomen. IMPRESSION: 1: There is no evidence of contrast leakage or free air seen on this exam. 2: There is air filled small bowel in colon seen which is nonspecific. Ileus may be considered. Dictated by: Dictated on workstation # [id number]
[2021-09-07 15:41] VITALS: BP 131/77
[2021-09-07] MEDS: 1/2 NS IV SOLUTION 1,000 ML IV SCH (16:51)
[2021-09-07] MEDS ORDERED: [UNRECOGNIZED DRUG - OTHER] IV SCH ×11 (17:00)
[2021-09-07] MEDS ORDERED: SODIUM CHLORIDE IV SCH ×11 (17:00)
[2021-09-07] MEDS ORDERED: SODIUM ACETATE IV SCH ×11 (17:00)
[2021-09-08] VITALS: BP 114/75
[2021-09-08] MEDS: inSUlin ASPART (NovoLOG) 1 UNIT/0.01 ML (CHARGE PER UNIT) SC SCH ×3 (00:29→11:21)
[2021-09-08] MEDS: morphine INJ 4 MG/ML 1 ML (VIAL/SYRINGE) IVP PRN ×8 (00:35→22:33)
[2021-09-08] MEDS: PIPERACILLIN/TAZO 4.5 GM/NS 100 ML IV SCH ×6 (03:15→22:21)
[2021-09-08 08:30] VITALS: BP 114/75
--- NOTE | 2021-09-08 08:56 | Progress Note - Surgery ---
KIMBERLY BENITO 09/08/21 0855: Subjective Date Seen by a Provider: Sep 08, 2021 Time Seen by a Provider: 07:50 Subjective/Events-last exam Patient resting in bed, NG tube still in place. Patient handling clear liquids well. Patient's only complaint is NG tube irritation. Patient is hungry and wishes to have something to eat. Patient denies abdominal discomfort. Has has a couple bowel movements o/n, no blood. Patient ambulating around room and using bedside commode. Patient denies fever, chills, nausea, vomiting, shortness of breath, chest pain, palpitations, numbness, paresthesia, headaches, vision changes. Review of Systems General: No Chills, No Night Sweats HEENT: No Head Aches, No Visual Changes Pulmonary: No Dyspnea, No Cough Cardiovascular: No: Chest Pain, Palpitations Gastrointestinal: No: Nausea, Vomiting Genitourinary: No Dysuria, No Frequency Musculoskeletal: No: neck pain, shoulder pain Neurological: No: Weakness, Numbness Objective Exam Vital Signs Date Time Temp Pulse Resp B/P (MAP) Pulse Ox O2 Delivery O2 Flow Rate FiO2 09/08/21 08:30 36.0 60 18 114/75 (88) 97 Room Air 09/08/21 01:05 36.8 09/08/21 00:00 36.8 72 16 114/75 (88) 99 Room Air 09/07/21 20:00 Room Air 09/07/21 15:41 37.0 79 16 131/77 (95) 98 Room Air I & O 09/08/21 06:59 Intake Total 1710 ml Output Total 350 ml Balance 1360 ml Capillary Refill : Less Than 3 Seconds General Appearance: No Apparent Distress, Thin HEENT: Pharynx Normal, Moist Mucous Membranes; No Scleral Icterus (L), No Scleral Icterus (R); Other (NGT in place) Neck: Full Range of Motion, Non Tender, Supple Respiratory: Lungs Clear, Normal Breath Sounds, No Accessory Muscle Use, No Respiratory Distress Cardiovascular: Regular Rate, Rhythm, No Gallop, No Murmur Peripheral Pulses: 2+ Dorsalis Pedis (R), 2+ Left Dors-Pedis (L), 2+ Radial Pulses (R), 2+ Radial Pulses (L) Gastrointestinal: non tender (Patient reports no tenderness on palpation. Change from yesterday.), soft, no organomegaly, no pulsatile mass, other Extremity: Normal Capillary Refill, Normal Range of Motion, Non Tender, No Calf Tenderness, Other (Left arm PICC line ) Neurologic/Psychiatric: Alert, Oriented x3, No Motor/Sensory Deficits, Depressed Affect Skin: Normal Color, Warm/Dry; No Diaphoresis, No Jaundice Lymphatic: No Adenopathy (cervical, axillary) Results Lab Laboratory Tests 09/07/21 11:30: Glucometer 84 09/07/21 18:11: Glucometer 131H 09/08/21 00:04: Glucometer 119H 09/08/21 06:10: Glucometer 113H Microbiology 09/02/21 Blood Culture - Final, Complete No growth 09/02/21 MRSA Screen - Final, Complete Meds Item Value Date Time Sodium Chloride 1,760.0167 ml @ 36 mls/hr 09/07/21 1700 15 meq/Sodium 1700/IV 09/07/21 1651 Acetate 60 meq/ Potassium Chloride 80 meq/ Sodium Phosphate 35 mm/Calcium Gluconate 4.65 meq/Magnesium Sulfate 1.8 gm/ Multivitamins 10 ml/Zinc/Copper/ Manganese/ Selenium 1 ml/ Dextrose/Amino Acids/Fat Emulsion Intravenous Insulin Aspart INSULIN SLIDING SCALE ... 09/06/21 0000 (NovoLOG (CHARGE Q6HR/SC PER UNIT)) Pantoprazole 40 mg 09/05/21 2100 (Protonix BID/IV 09/08/21 0916 Injection) Enoxaparin Sodium 30 mg 09/05/21 1115 (Lovenox Q24H/SC 09/08/21 0919 Injection) Sodium Chloride 1,000 ml @ 30 mls/hr 09/04/21 1645 Albuterol/ 3 ml 09/03/21 2045 Ipratropium RTQ4HR PRN/INH (Duoneb Inhalation Solution) Hydralazine HCl 10 mg 09/03/21 1315 (Apresoline Q4HR PRN/IV 09/04/21 0210 Injection) Fluconazole/ 50 ml @ 100 mls/hr 09/03/21 0900 Sodium Chloride/ DAILY/IV 09/08/21 0916 Miscellaneous Piperacillin Sod/ 120 ml @ 30 mls/hr 09/02/21 1200 Tazobactam Sod Q8H/IV 09/08/21 0315 4.5 gm/Sodium Chloride Ondansetron HCl 4 mg 09/02/21 1000 (Zofran Q6H PRN/IVP 09/07/21 1101 Injection (Sdv)) Morphine Sulfate 2 mg 09/02/21 0930 (morphine Q2H PRN/IVP 09/08/21 0706 INJECTION) Radiology No new imaging. Assessment/Plan Assessment/Plan Assessment/Plan S/P Modified Royce Patch for perforated Gastric Ulcer Hx of substance abuse Continue IV fluids. Pain control as needed Encourage incentive spirometer use and ambulation - patient ambulating around ro om. PT consult to assist in ambulation. Slowly advance diet to soft as tolerated - patient tolerating clears, no abdominal pain, and having BM. Stop TPN. AARON ALFORD DO 09/08/21 1202: Subjective Time Seen by a Provider: 10:47 Subjective/Events-last exam Pt seen and examined, NGT was out when I came in...states she accidentally pulled it. Tolerating clears. +BMs Review of Systems Pulmonary: No Dyspnea, No Cough Cardiovascular: No: Chest Pain, Palpitations Gastrointestinal: Abdominal Pain; No: Nausea, Vomiting Objective Exam General Appearance: No Apparent Distress, Thin HEENT: Pharynx Normal, Moist Mucous Membranes Respiratory: Lungs Clear, Normal Breath Sounds, No Accessory Muscle Use Cardiovascular: Regular Rate, Rhythm, No Murmur Gastrointestinal: non tender (Patient reports no tenderness on palpation. Change from yesterday.), soft, no organomegaly Assessment/Plan Assessment/Plan Assessment/Plan S/P Modified Royce Patch for perforated Gastric Ulcer Hx of substance abuse Continue IV fluids. Pain control as needed. Encourage incentive spirometer use and ambulation - patient ambulating around room. PT consult to assist in ambulation. Slowly advance diet to soft as tolerated - patient tolerating clears, no abdominal pain, and having BM. Will stop TPN Supervisory-Addendum Brief Verification & Attestation Participated in pt care: history, MDM, physical Personally performed: exam, history, MDM, supervision of care Care discussed with: Medical Student Procedures: n/a Verification and Attestation of Medical Student E/M Service A medical student performed and documented this service. I then reviewed and verified all information documented by the medical student and made modificatio ns to such information, when appropriate. I personally performed a physical exam, medical decision making and then discussed any differences between the notes and made revisions as necessary to create one note. Aaron Alford , 09/08/21 , 12:01 KIMBERLY BENITO Sep 08, 2021 08:55 AARON ALFORD DO Sep 08, 2021 12:02
[2021-09-08] MEDS: FLUCONAZOLE 200 MG/100 ML 50 ML, EMPTY IV BAG (PVC) 1 EA IV SCH ×2 (09:16)
[2021-09-08] MEDS: PANTOPRAZOLE 40 MG (PROTONIX) VIAL IV SCH ×2 (09:16→22:21)
[2021-09-08] MEDS: ENOXAPARIN 30 MG/0.3 ML (LOVENOX) SYR SC SCH (09:19)
[2021-09-08 16:15] VITALS: BP 126/81
[2021-09-08] MEDS ORDERED: NS IV 500 ML 500 ML ONE (22:18)
[2021-09-08 23:35] VITALS: BP 123/71
[2021-09-09] MEDS: morphine INJ 4 MG/ML 1 ML (VIAL/SYRINGE) IVP PRN ×3 (02:34→09:03)
[2021-09-09] MEDS: PIPERACILLIN/TAZO 4.5 GM/NS 100 ML IV SCH ×2 (05:23)
[2021-09-09] MEDS ORDERED: HYDROcodone/APAP 5 MG/325 MG (LORTAB) TAB PO PRN (07:00)
--- NOTE | 2021-09-09 07:05 | Progress Note - Surgery ---
Subjective Date Seen by a Provider: Sep 09, 2021 Time Seen by a Provider: 07:03 Subjective/Events-last exam Tolerating liquids. Pain controlled. Ambulating. Using IS. Drain serous. Denies n/v fever sweats chills shortness of breath or chest pain. Objective Exam Vital Signs Date Time Temp Pulse Resp B/P (MAP) Pulse Ox O2 Delivery O2 Flow Rate FiO2 09/08/21 23:35 37.0 70 16 123/71 (88) 98 Room Air 09/08/21 20:45 96 Room Air 09/08/21 16:15 37.0 73 20 126/81 (96) 99 Room Air 09/08/21 08:30 36.0 60 18 114/75 (88) 97 Room Air 09/08/21 08:00 Room Air I & O 09/09/21 07:00 Intake Total 2900 ml Output Total 20 ml Balance 2880 ml Capillary Refill : Less Than 3 Seconds General Appearance: No Apparent Distress, Thin HEENT: Pharynx Normal, Moist Mucous Membranes Neck: Full Range of Motion, Non Tender, Supple Respiratory: Lungs Clear, Normal Breath Sounds, No Accessory Muscle Use Cardiovascular: Regular Rate, Rhythm, No Murmur Peripheral Pulses: 2+ Dorsalis Pedis (R), 2+ Left Dors-Pedis (L), 2+ Radial Pulses (R), 2+ Radial Pulses (L) Gastrointestinal: non tender, soft, no organomegaly, other (incision c/d/i, drain serous) Extremity: Normal Capillary Refill, Normal Range of Motion, Non Tender, No Calf Tenderness, Other (Left arm PICC line ) Neurologic/Psychiatric: Alert, Oriented x3, No Motor/Sensory Deficits, Depressed Affect Skin: Normal Color, Warm/Dry; No Diaphoresis, No Jaundice Lymphatic: No Adenopathy (cervical, axillary) Results Lab Laboratory Tests 09/08/21 11:14: Glucometer 94 09/08/21 15:31: Glucometer 99 Microbiology 09/02/21 Blood Culture - Final, Complete No growth 09/02/21 MRSA Screen - Final, Complete Assessment/Plan Assessment/Plan Assessment/Plan S/P Modified Royce Patch for perforated Gastric Ulcer Hx of substance abuse Continue IV fluids. Pain control as needed convert to oral. Encourage andres ntive spirometer use and ambulation - patient ambulating around room. Diet as tolerates. If pain controlled and continues to tolerate diet likely home today/tomorrow. CUAUHTEMOC RICHARDSON DO Sep 09, 2021 07:05
[2021-09-09 08:00] VITALS: BP 121/66
[2021-09-09] MEDS ORDERED: PANTOPRAZOLE 40 MG (PROTONIX) TAB PO SCH (09:00)
[2021-09-09] MEDS: ENOXAPARIN 30 MG/0.3 ML (LOVENOX) SYR SC SCH (09:04)
[2021-09-09] MEDS: FLUCONAZOLE 200 MG/100 ML 50 ML, EMPTY IV BAG (PVC) 1 EA IV SCH ×2 (09:31)
--- NOTE | 2021-09-09 11:38 | Progress Note - Hospitalist ---
RALPH MARY 09/09/21 1138: Subjective Subjective/Events-last exam Ms. Saravia is a 46 year old female who presented to the ED on 02 September with right-sided lower abdominal pain. Patient reported associated nausea and vomiting at that time. She was found to have pneumoperitoneum and was admitted to general surgery. She was diagnosed with a gastric perforation and a diagnostic laparoscopy was done with Dr. Stafford on 02 September. The procedure was converted to open with a gastric biopsy with a modified Royce patch for a gastric perforation. Patient is currently postop day 7 and reports that she is ready to go home today. She reported soreness and tenderness around her incision sites. She is able to eat and had a bowel movement yesterday. She is ambulating well. She has a drain placed which has a small amount of serous fluid. She repor ts the drainage has slowed dramatically over the last day. The plan is to discharge her home today or tomorrow according to Dr. Stafford's assessment. Review of Systems General: No Chills, No Fatigue Pulmonary: No Dyspnea, No Cough Cardiovascular: No: Chest Pain, Palpitations Gastrointestinal: Abdominal Pain; No: Nausea, Vomiting Neurological: No: Weakness, Confusion Focused Exam Capillary Refill: Less Than 3 Seconds Peripheral Pulses: 2+ Radial Pulses (R), 2+ Radial Pulses (L) Objective Exam Vital Signs Vital Signs Date Time Temp Pulse Resp B/P (MAP) Pulse Ox O2 Delivery O2 Flow Rate FiO2 09/09/21 08:00 36.8 60 18 121/66 (84) 99 Room Air 09/06/21 03:40 21 Capillary Refill : Less Than 3 Seconds General Appearance: No Apparent Distress (Patient reported 10/10 pain and was waiting for her pain medicine. During this she was eating breakfast and talking with me normally.) HEENT: PERRL/EOMI, Moist Mucous Membranes; No Scleral Icterus (L), No Scleral Icterus (R) Neck: Normal Inspection, Non Tender; No Lymphadenopathy (L), No Lymphadenopathy (R) Respiratory: Chest Non Tender, Lungs Clear, Normal Breath Sounds, No Accessory Muscle Use, No Respiratory Distress Cardiovascular: Regular Rate, Rhythm, No Murmur, Normal Peripheral Pulses Gastrointestinal: Normal Bowel Sounds, Soft; No Guarding; Tenderness (Slight tenderness to palpation) Extremity: Normal Capillary Refill, Normal Inspection, No Pedal Edema Neurologic/Psychiatric: Alert, Oriented x3, No Motor/Sensory Deficits, Normal Mood/Affect, roof fixer II-XII Norm as Tested Skin: Normal Color, Warm/Dry Lymphatic: No Adenopathy (Head and neck) Results/Procedures Lab Patient resulted labs reviewed. Imaging: Reviewed Imaging Report Assessment/Plan Assessment and Plan Assess & Plan/Chief Complaint Assessment Pneumoperitoneum - 2/2 gastric perforation - Surgery on [address] Stafford Substance use - Urine toxicology positive for opiate, amphetamine, and marijuana Plan Continue IV fluids Pain control as needed Encourage ICS and ambulation Discharge pending Dr. Stafford's assessment FISH CAMP DO 09/10/21 0541: Subjective HPI/CC On Admission Date Seen by Provider: Sep 10, 2021 Time Seen by Provider: 10:00 Subjective/Events-last exam Patient doing very well Ready for discharge Check meds and labs Review of Systems Pulmonary: Dyspnea Objective Exam General Appearance: No Apparent Distress, WD/WN, Chronically ill Respiratory: Lungs Clear Cardiovascular: Regular Rate, Rhythm Neurologic/Psychiatric: Alert, Oriented x3, No Motor/Sensory Deficits, Normal Mood/Affect Assessment/Plan Assessment and Plan Assess & Plan/Chief Complaint Discharge home Supervisory-Addendum Brief Verification & Attestation Participated in pt care: history, MDM, physical Personally performed: exam, history, MDM, supervision of care Care discussed with: Medical Student Procedures: n/a Results interpretation: Verified all documentation Verification and Attestation of Medical Student E/M Service A medical student performed and documented this service in my presence. I reviewed and verified all information documented by the medical student and made modifications to such information, when appropriate. I personally performed the physical exam and medical decision making. Fish Camp Sep 10, 2021,05:41 RALPH MARY Sep 09, 2021 11:38 FISH CAMP DO Sep 10, 2021 05:41
[2021-09-09] MEDS ORDERED: ACHD5005 PO (14:16)
[2021-09-09] MEDS ORDERED: PANT40TA2 PO (14:16)
[2021-09-09] MEDS ORDERED: AMOX-358 PO (14:16)
[2021-09-09] MEDS ORDERED: DOCU-143 PO (14:16)
--- NOTE | 2021-09-09 14:20 | Discharge Inst-Simple/Standard ---
Discharge Inst-Standard Discharge Medications New, Converted or Re-Newed RX: Transmitted to Pharmacy Patient Instructions/Follow Up Plan of Care/Instructions/FU: 1-2 weeks Nydia. When drain is less than 30 mL in 24 hours, Call Dr. Stafford office and have drain removed the next day. Activity as Tolerated: No Discharge Diet: Regular Diet Other Inst to Patient Follow up Appt: When drain is less than 30 mL in 24 hours, Call Dr. Stafford office and have drain removed the next day. Instructions: No lifting greater than 10 pounds. No strenuous activity. May shower in 24 hours, no tub bath or soaking. Use incentive spirometer at home as directed. No Smoking Skin/Wound Care: You have romeo. Keep area clean and dry. Symptoms to Report: Appetite Changes, Extremity Discoloration, Numbness/Tingling, Swelling Increased, Bleeding Excessive, Eyesight Changes, Pain Increased, Urine Color Change, Constipation(Persistent), Fever over 101 degree F, Pain/Pressure in chest, Urinating Difficulty, Cough Up/Vomit Blood, Heart Beat Irreg/Pounding, Pain/Pressure in jaw, Vaginal Bleeding Increase, Cramps in feet or legs, Lightheadedness, Pain/Pressure in shoulder, Diarrhea(Persistent), Memory Changes Suddenly, Questions/Concerns, Weight gain consecutive days, Dizziness/Fainting, Nausea/Vomiting, Shortness of Breath, Weight gain over 2 pounds If questions or concerns contact your physician Or seek help at emergency department. CUAUHTEMOC STAFFORD DO Sep 09, 2021 14:20
== END 2021-09-09 16:14 | disposition home or self-care (01) | DRG 326 ==
LOC: ER FS 04:02 → EDUNIT# 04:02 → ER FS 07:38 → ICU 09:00 → 4TH 09-04 18:16
PROVIDERS: ADMIT Surgery; ATTEND Surgery
PROC: 0DB60ZX Excision of Stomach, Open Approach, Diagnostic (ICD-10-PCS; 2021-09-02)
PROC: 0WJG4ZZ Inspection of Peritoneal Cavity, Percutaneous Endoscopic Approach (ICD-10-PCS; 2021-09-02)
PROC: 0DU607Z Supplement Stomach with Autologous Tissue Substitute, Open Approach (ICD-10-PCS; principal; 2021-09-02 11:36)
DX: K31.89 Other diseases of stomach and duodenum (principal); K65.8 Other peritonitis; Z53.31 Laparoscopic surgical procedure converted to open procedure; K21.9 Gastro-esophageal reflux disease without esophagitis; D64.9 Anemia, unspecified; F12.10 Cannabis abuse, uncomplicated; F15.10 Other stimulant abuse, uncomplicated; F11.10 Opioid abuse, uncomplicated; F17.210 Nicotine dependence, cigarettes, uncomplicated; Z20.822 Contact with and (suspected) exposure to COVID-19; Z88.6 Allergy status to analgesic agent
CPT/HCPCS: 36415; 36569; 51702; 71045; 74177; 74250; 76937; 80048; 80053; 80306; 81000; 82947; 83036; 83605; 83735; 84100; 84478; 84703; 85007; 85025; 85027; 86141; 87040; 87081; 87636; 88305; 94664; 94760; 96365; 96375; 96376

== ENCOUNTER 2021-12-20 22:00 | Emergency (ER) | payer SELFPAY ==
[~2021-12-20] VITALS: Ht 170 cm; Wt 73.4 kg
[~2021-12-20 22:00] MED LIST changes: +ACHD5005 PO; +AMOX-358 PO; +DOCU-143 PO; +PANT40TA2 PO
[2021-12-20] MEDS ORDERED: NS IV 1000 ML 1,000 ML IV STA (22:06)
[2021-12-20] MEDS ORDERED: FAMOTIDINE 20MG/2ML IV (PEPCID) IV STA (22:06)
--- NOTE | 2021-12-20 22:06 | ED Abdominal Pain ---
General Chief Complaint: Abdominal/GI Problems Stated Complaint: ABD PAIN History of Present Illness Date Seen by Provider: Dec 20, 2021 Time Seen by Provider: 22:06 Initial Comments 46-year-old female presents with stomach pain. Patient reports that the stomach pain has been going on and off for a couple days. Patient reports that 30 minutes ago got worse and is continue to worsen since then. Patient has a history of a perforated ulcer with repair and also with stomach cancer. Patient reports that she has not followed up or take any medication for her stomach since her stomach ulcer. Patient admits to use in illicit drugs until about 3 weeks ago when she quit. Patient admits to drinking and has had 3 beers today. Patient reports she feels nauseated. Allergies and Home Medications Allergies Coded Allergies: aspirin (Verified Allergy, Mild, Urticaria , 09/02/21) No Known Allergies (Unverified Allergy, Unknown, 08/14/20) Patient Home Medication List Home Medication List Reviewed: Yes Amoxicillin/Potassium Clav (Augmentin 875-125 Tablet) 1 Each Tablet, 1 EACH PO BID Prescribed by: CUAUHTEMOC RICHARDSON on 09/09/211415 Docusate Sodium (Colace) 100 Mg Capsule, 100 MG PO DAILY Prescribed by: CUAUHTEMOC RICHARDSON on 09/09/21 141 Hydrocodone/Acetaminophen (Hydrocodone-Acetamin 5-325 mg) 1 Each Tablet, 1 EACH PO Q4H PRN for PAIN-MODERATE (5-7) Prescribed by: CUAUHTEMOC RICHARDSON on 09/09/211415 Pantoprazole Sodium (Protonix) 40 Mg Tablet.dr, 40 MG PO DAILY Prescribed by: CUAUHTEMOC RICHARDSON on 09/09/21 141 Review of Systems Review of Systems Constitutional: No chills, No fever Respiratory: No Symptoms Reported Cardiovascular: No Symptoms Reported Gastrointestinal: Abdominal Pain, Diarrhea, Nausea, Vomiting Musculoskeletal: no symptoms reported Skin: no symptoms reported Psychiatric/Neurological: No Symptoms Reported Endocrine: No Symptoms Reported Hematologic/Lymphatic: No Symptoms Reported Past Jousiwy-Qdapri-Kwcutp Hx Seasonal Allergies Seasonal Allergies: Yes Past Medical History Surgeries: Yes Orthopedic Respiratory: No Cardiac: No Neurological: No Genitourinary: No Gastrointestinal: Yes Gastroesophageal Reflux Musculoskeletal: Yes Degenerate Disk Disease Endocrine: No HEENT: No Cancer: No Psychosocial: No Integumentary: No Blood Disorders: No Family Medical History No Pertinent Family Hx Physical Exam Vital Signs Vital Signs - First Documented 3/4/22 22:00 Temp 37.3 Pulse 112 Resp 15 B/P (MAP) 168/108 (128) Pulse Ox 99 O2 Delivery Room Air Capillary Refill : Height/Weight/BMI Height: '" Weight: lbs. oz. kg; 2456.74 BMI Method: General Appearance: mild distress Respiratory: lungs clear, normal breath sounds Cardiovascular: normal peripheral pulses, regular rate, rhythm Gastrointestinal: soft, tenderness, other (Old periumbilical incision scar) Extremities: normal range of motion, non-tender Neurologic/Psychiatric: alert, normal mood/affect, oriented x 3 Skin: normal color, warm/dry Focused Exam Lactate Level 12/20/21 22:14: Lactic Acid Level 1.02 Lactic Acid Level Laboratory Tests Test 12/20/21 22:14 Lactic Acid Level 1.02 MMOL/L (0.50-2.00) Progress/Results/Core Measures Results/Orders Lab Results Laboratory Tests Test 12/20/21 22:14 Range/Units White Blood Count 7.5 4.3-11.0 10^3/uL Red Blood Count 4.40 3.80-5.11 10^6/uL Hemoglobin 13.3 11.5-16.0 g/dL Hematocrit 40 35-52 % Mean Corpuscular Volume 90 80-99 fL Mean Corpuscular Hemoglobin 30 25-34 pg Mean Corpuscular Hemoglobin Concent 34 32-36 g/dL Red Cell Distribution Width 13.5 10.0-14.5 % Platelet Count 374 130-400 10^3/uL Mean Platelet Volume 8.4 L 9.0-12.2 fL Immature Granulocyte % (Auto) 0 % Neutrophils (%) (Auto) 60 42-75 % Lymphocytes (%) (Auto) 31 12-44 % Monocytes (%) (Auto) 7 0-12 % Eosinophils (%) (Auto) 2 0-10 % Basophils (%) (Auto) 1 0-10 % Neutrophils # (Auto) 4.5 1.8-7.8 10^3/uL Lymphocytes # (Auto) 2.3 1.0-4.0 10^3/uL Monocytes # (Auto) 0.5 0.0-1.0 10^3/uL Eosinophils # (Auto) 0.1 0.0-0.3 10^3/uL Basophils # (Auto) 0.1 0.0-0.1 10^3/uL Immature Granulocyte # (Auto) 0.0 0.0-0.1 10^3/uL Sodium Level 140 135-145 MMOL/L Potassium Level 3.7 3.6-5.0 MMOL/L Chloride Level 105 98-107 MMOL/L Carbon Dioxide Level 23 21-32 MMOL/L Anion Gap 12 5-14 MMOL/L Blood Urea Nitrogen 17 7-18 MG/DL Creatinine 0.75 0.60-1.30 MG/DL Estimat Glomerular Filtration Rate 101 BUN/Creatinine Ratio 23 Glucose Level 122 H 70-105 MG/DL Lactic Acid Level 1.02 0.50-2.00 MMOL/L Calcium Level 9.3 8.5-10.1 MG/DL Corrected Calcium 9.0 8.5-10.1 MG/DL Total Bilirubin 0.2 0.1-1.0 MG/DL Aspartate Amino Transf (AST/SGOT) 14 5-34 U/L Alanine Aminotransferase (ALT/SGPT) 13 0-55 U/L Alkaline Phosphatase 87 40-136 U/L C-Reactive Protein < 0.30 <0.50 MG/DL Total Protein 8.0 6.4-8.2 GM/DL Albumin 4.4 3.2-4.5 GM/DL Lipase 15 8-78 U/L Serum Alcohol < 10 <10 MG/DL My Orders Orders - SANCHEZ,LIZZETH L DO Alcohol (12/20/21 22:06) Cbc With Automated Diff (12/20/21 22:06) Comprehensive Metabolic Panel (12/20/21 22:06) Lactic Acid Analyzer (12/20/21 22:06) Lipase (12/20/21 22:06) Ua Culture If Indicated (12/20/21 22:06) Crp Fs (12/20/21 22:06) Ondansetron Injection (Zofran Injectio (12/20/21 22:15) Ns Iv 1000 Ml (Sodium Chloride 0.9%) (12/20/21 22:06) Famotidine Injection (Pepcid Injection) (12/20/21 22:06) Acute Abd Series (12/20/21 22:06) Fentanyl Inj (Sublimaze Injection) (12/20/21 22:32) Ct Abdomen/Pelvis W (12/20/21 23:02) Iohexol Injection (Omnipaque 350 Mg/Ml 1 (12/20/21 23:15) Received Contrast (Hold Metformin- Contr (12/20/21 23:15) Sodium Chloride Flush (Catheter Flush Sy (12/20/21 23:15) Ns (Ivpb) (Sodium Chloride 0.9% Ivpb Bag (12/20/21 23:15) Medications Given in ED Current Medications Medications Dose Ordered Sig/Gurpreet Route Start Time Stop Time Status Last Admin Dose Admin Iohexol 100 ml ONCE ONCE IV 12/20/21 23:15 12/20/21 23:16 DC 12/20/21 23:23 100 ML Ondansetron HCl 4 mg ONCE ONCE IVP 12/20/21 22:15 12/20/21 22:16 DC 12/20/21 22:15 4 MG Sodium Chloride 10 ml NEEDED PRN IV 12/20/21 23:15 12/21/21 01:57 DC 12/20/21 23:23 10 ML Sodium Chloride 100 ml ONCE ONCE IV 12/20/21 23:15 12/20/21 23:16 DC 12/20/21 23:23 100 ML Vital Signs/I&O 12/20/21 12/21/21 22:00 00:55 Temp 37.3 Pulse 112 85 Resp 15 18 B/P (MAP) 168/108 (128) 135/70 Pulse Ox 99 99 O2 Delivery Room Air Room Air Progress Progress Note : Progress Note Patient's lab, CT showed no acute findings. Patient would not provide us with a urine sample while she was here. Patient symptoms likely a gastritis. Recommended that she take Pepcid twice daily, use some Pepto or Maalox in addition to that along with start omeprazole. Patient was stable and discharged home Diagnostic Imaging Diagonstic Imaging: CT Plain Films/CT/US/NM/MRI: abdomen Comments No acute findings Reviewed: Reviewed Night [facility] Diagonstic Imaging: Xray Plain Films/CT/US/NM/MRI: abdomen Comments Date of Exam:12/20/21 ACUTE ABD SERIES INDICATION: Abdominal pain and peptic ulcer disease. EXAMINATION: Supine and upright views of the abdomen were obtained with single view of the chest. FINDINGS: The lungs are clear, bilaterally. Bowel gas pattern is unremarkable. No free intraperitoneal gas or pneumatosis is identified. There is no evidence of pathologic abdominal calcification. IMPRESSION: No acute abnormality is detected. Departure Impression Primary Impression: Gastritis and duodenitis Disposition: HOME, SELF-CARE Condition: Stable Departure-Patient Inst. Referrals: NO,LOCAL PHYSICIAN (PCP/Family) Primary Care Physician Patient Instructions: Peptic Ulcers (DC), Gastritis ED Add. Discharge Instructions: Pepcid twice daily as directed on package or similar medication All discharge instructions reviewed with patient and/or family. Voiced understanding. LIZZETH SANCHEZ DO Dec 20, 2021 22:06
[2021-12-20] MEDS ORDERED: ONDANSETRON 4 MG/2 ML (SDV) Z0FRAN IVP ONE (22:15)
[2021-12-20 22:18] LABS: BASOPHILS # (AUTO) 0.1 10^3/uL (0.0-0.1); BASOPHILS % (AUTO) 1 % (0-10); EOSINOPHILS # (AUTO) 0.1 10^3/uL (0.0-0.3); EOSINOPHILS % (AUTO) 2 % (0-10); HEMATOCRIT 40 % (35-52); HEMOGLOBIN 13.3 g/dL (11.5-16.0); LYMPHOCYTES # (AUTO) 2.3 10^3/uL (1.0-4.0); LYMPHOCYTES % (AUTO) 31 % (12-44); MEAN CORPUSCULAR HEMOGLOBIN 30 pg (25-34); MEAN CORPUSCULAR HGB CONC 34 g/dL (32-36); MEAN CORPUSCULAR VOLUME 90 fL (80-99); MEAN PLATELET VOLUME 8.4 fL (9.0-12.2); MONOCYTES # (AUTO) 0.5 10^3/uL (0.0-1.0); MONOCYTES % (AUTO) 7 % (0-12); NEUTROPHILS # (AUTO) 4.5 10^3/uL (1.8-7.8); NEUTROPHILS % (AUTO) 60 % (42-75); PLATELET COUNT 374 10^3/uL (130-400); WHITE BLOOD COUNT 7.5 10^3/uL (4.3-11.0)
[2021-12-20] MEDS ORDERED: fentaNYL INJ 100 MCG/2 ML AMP IVP STA (22:32)
[2021-12-20 22:39] LABS: ALANINE AMINOTRANSFERASE 13 U/L (0-55); ALBUMIN 4.4 GM/DL (3.2-4.5); ALKALINE PHOSPHATASE 87 U/L (40-136); BILIRUBIN,TOTAL 0.2 MG/DL (0.1-1.0); BUN/CREATININE RATIO 23; CALCIUM 9.3 MG/DL (8.5-10.1); CARBON DIOXIDE 23 MMOL/L (21-32); CHLORIDE 105 MMOL/L (98-107); CREATININE SERUM 0.75 MG/DL (0.60-1.30); GFR ESTIMATED 101; GLUCOSE 122 MG/DL (70-105); LIPASE 15 U/L (8-78); POTASSIUM 3.7 MMOL/L (3.6-5.0); SODIUM 140 MMOL/L (135-145)
--- NOTE | 2021-12-20 23:01 | Diagnostic Imaging Report ---
INDICATION: Abdominal pain and peptic ulcer disease. EXAMINATION: Supine and upright views of the abdomen were obtained with single view of the chest. FINDINGS: The lungs are clear, bilaterally. Bowel gas pattern is unremarkable. No free intraperitoneal gas or pneumatosis is identified. There is no evidence of pathologic abdominal calcification. IMPRESSION: No acute abnormality is detected. Dictated by: Dictated on workstation # [id number]
[2021-12-20] MEDS ORDERED: HOLD METFORMIN - RECEIVED CONTRAST 20 ML VIAL IV SCH (23:15)
[2021-12-20] MEDS ORDERED: NS 100 ML (IVPB) BAG IV ONE (23:15)
[2021-12-20] MEDS ORDERED: CATHETER FLUSH 10 ML SYR IV PRN (23:15)
[2021-12-20] MEDS ORDERED: IOHEXOL 350 MG/ML 100 ML (OMNIPAQUE 350) VIAL IV ONE (23:15)
[2021-12-21 00:55] VITALS: BP 135/70
--- NOTE | 2021-12-21 06:49 | Diagnostic Imaging Report ---
PROCEDURE: CT abdomen and pelvis with contrast. TECHNIQUE: Multiple contiguous axial images were obtained through the abdomen and pelvis after administration of intravenous contrast. Auto Exposure Controls were utilized during the CT exam to meet ALARA standards for radiation dose reduction. All CT scans use one or more of the following dose optimizing techniques: automated exposure control, MA and/or KvP adjustment based on patient size and exam type or iterative reconstruction. INDICATION: Generalized abdominal pain. COMPARISON: 09/02/2021. DISCUSSION: The lung bases are well-aerated. Normal heart size. No pleural or pericardial fluid. The liver, gallbladder, pancreas, stomach, spleen, and adrenal glands are unremarkable. No renal stone or hydronephrosis. The aorta is normal in caliber. The large and small bowel loops appear within normal limits. The uterus and urinary bladder are unremarkable. No ascites or adenopathy. No osseous abnormality identified. IMPRESSION: 1. No acute abnormality identified within the abdomen or pelvis. 2. Agree with preliminary report. Dictated by: Dictated on workstation # [id number]
== END 2021-12-21 00:55 | disposition home or self-care (01) ==
LOC: EDUNIT# 22:00 → ER FS 22:01
DX: K29.70 Gastritis, unspecified, without bleeding (principal); K29.80 Duodenitis without bleeding
CPT/HCPCS: 36415; 74022; 74177; 80053; 83605; 83690; 85025; 86141; 99283; G0480; 80320; Q9967

== ENCOUNTER 2022-08-27 00:37 | Emergency (ER) | payer OTHER ==
[2022-08-27] MEDS ORDERED: NS IV 1000 ML 1,000 ML IV STA (00:43)
[2022-08-27] MEDS ORDERED: FAMOTIDINE 20MG/2ML IV (PEPCID) IV STA (00:43)
--- NOTE | 2022-08-27 00:43 | ED General ---
General Stated Complaint: ALLERGIC REACTION History of Present Illness Date Seen by Provider: Aug 27, 2022 Time Seen by Provider: 00:43 Initial Comments 47-year-old female presents following allergic reaction. Patient took some ibuprofen. Shortly after taking ibuprofen she got very itchy, her ear started ringing. She some diarrhea and vomited. She denies any shortness of breath or wheezing. Patient reports she had a panic attack and was hyperventilating and thinks she passed out due to that. Patient has taken ibuprofen in the past but reports that she has not taken any since a stomach surgery and since then her system has been different. Patient is currently incarcerated. [facility] at the [facility] she was given 50 of Benadryl and symptoms have improved. Allergies and Home Medications Allergies Coded Allergies: aspirin (Verified Allergy, Mild, Urticaria , 09/02/21) No Known Allergies (Unverified Allergy, Unknown, 08/14/20) Patient Home Medication List Home Medication List Reviewed: Yes Amoxicillin/Potassium Clav (Augmentin 875-125 Tablet) 1 Each Tablet, 1 EACH PO BID Prescribed by: CUAUHTEMOC RICHARDSON on 09/09/211415 Docusate Sodium (Colace) 100 Mg Capsule, 100 MG PO DAILY Prescribed by: CUAUHTEMOC RICHARDSON on 09/09/21 141 Hydrocodone/Acetaminophen (Hydrocodone-Acetamin 5-325 mg) 1 Each Tablet, 1 EACH PO Q4H PRN for PAIN-MODERATE (5-7) Prescribed by: CUAUHTEMOC RICHARDSON on 09/09/211415 Pantoprazole Sodium (Protonix) 40 Mg Tablet.dr, 40 MG PO DAILY Prescribed by: CUAUHTEMOC RICHARDSON on 09/09/21 141 Review of Systems Review of Systems Constitutional: No chills; dizziness; No fever EENTM: no symptoms reported Respiratory: no symptoms reported Cardiovascular: no symptoms reported Gastrointestinal: diarrhea, nausea, vomiting Genitourinary: no symptoms reported Musculoskeletal: no symptoms reported Skin: pruritus Psychiatric/Neurological: Anxiety Hematologic/Lymphatic: No Symptoms Reported Past Ezuiwij-Icpdhj-Uxmlon Hx Immunizations Up To Date First/Initial COVID19 Vaccinat: denies Seasonal Allergies Seasonal Allergies: Yes Past Medical History Surgeries: Yes Orthopedic Respiratory: No Cardiac: No Neurological: No Genitourinary: No Gastrointestinal: Yes Gastroesophageal Reflux Musculoskeletal: Yes Degenerate Disk Disease Endocrine: No HEENT: No Cancer: No Psychosocial: No Integumentary: No Blood Disorders: No Family Medical History No Pertinent Family Hx Physical Exam Vital Signs Vital Signs - First Documented 08/27/22 00:38 Temp 36.6 Pulse 88 Resp 18 B/P (MAP) 112/73 (86) Pulse Ox 100 O2 Delivery Room Air Capillary Refill : Height, Weight, BMI Height: '" Weight: lbs. oz. kg; 25.00 BMI Method: General Appearance: No Apparent Distress, WD/WN HEENT: PERRL/EOMI, TMs Normal Neck: Non Tender, Supple Respiratory: Lungs Clear, Normal Breath Sounds Cardiovascular: Regular Rate, Rhythm, No Edema Gastrointestinal: Non Tender, Soft Extremity: Normal Capillary Refill, Normal Inspection Neurologic/Psychiatric: Alert, Oriented x3, No Motor/Sensory Deficits, Normal Mood/Affect Skin: Normal Color, Warm/Dry; No Rash Progress/Results/Core Measures Suspected Sepsis SIRS Temperature: Pulse: Respiratory Rate: Blood Pressure / Mean: Results/Orders My Orders Orders - LIZZETH SANCHEZ DO Ns Iv 1000 Ml (Sodium Chloride 0.9%) (08/27/22 00:43) Famotidine Injection (Pepcid Injection) (08/27/22 00:43) Dexamethasone Injection (Decadron Inje (08/27/22 00:45) Diphenhydramine Injection (Benadryl Inje (08/27/22 01:45) Medications Given in ED Current Medications Medications Dose Ordered Sig/Gurpreet Route Start Time Stop Time Status Last Admin Dose Admin Dexamethasone Sodium Phosphate 10 mg ONCE ONCE IV 08/27/22 00:45 08/27/22 00:46 DC 08/27/22 00:50 10 MG Diphenhydramine HCl 25 mg ONCE ONCE IVP 08/27/22 01:45 08/27/22 01:46 DC 08/27/22 01:37 25 MG Vital Signs/I&O 08/27/22 08/27/22 00:38 02:55 Temp 36.6 Pulse 88 72 Resp 18 18 B/P (MAP) 112/73 (86) 118/73 Pulse Ox 100 99 O2 Delivery Room Air Room Air Capillary Refill : Progress Note : Progress Note Patient feeling much better and is resting comfortably. Patient requesting [facility] to [facility]. She can continue use Benadryl as needed. Patient was stable upon discharge Departure Impression Primary Impression: Allergic reaction caused by a drug Qualified Codes: T78.40XA - Allergy, unspecified, initial encounter Disposition: 21 [address]/LAW [employer] Condition: Stable Departure-Patient Inst. Referrals: NO,LOCAL PHYSICIAN (PCP/Family) Primary Care Physician Patient Instructions: Adverse Drug Reactions, Adult (DC) Add. Discharge Instructions: 50 mg Benadryl every 4-6 hours as needed LIZZETH SANCHEZ DO Aug 27, 2022 00:43
[2022-08-27] MEDS ORDERED: diphenhydrAMINE 50 MG/ML INJ (BENADRYL) IVP ONE (01:45)
[2022-08-27 02:55] VITALS: BP 118/73
== END 2022-08-27 03:07 ==
LOC: EDUNIT# 00:37 → ER FS 00:39
DX: L29.9 Pruritus, unspecified (principal); T39.315A Adverse effect of propionic acid derivatives, initial encounter; Z28.310 Unvaccinated for COVID-19
CPT/HCPCS: 99283